=== PATIENT | male | born 1940 | race Caucasian/White ===

== ENCOUNTER 2022-12-20 11:43 | Inpatient (IN) | payer MEDICARE, BC, SELFPAY ==
[2022-12-20] VITALS (38 sets, daily range): BP systolic 117–135; BP diastolic 54–65; PULSE 61–75; RESP 12–24; TEMP 36.2–36.8; O2SAT 98–100; BMI 24.7; BMI 24.9
--- NOTE | ~2022-12-20 | XR_ITS ---
EXAMINATION: XR chest 1V INDICATION: Altered mental status TECHNIQUE: AP view of the chest is obtained. COMPARISON: 05/29/2017 FINDINGS: The lungs are free of acute opacities. No pleural effusion or pneumothorax. The cardiomedia stinal silhouette is normal. Calcified right paratracheal lymph nodes are consistent with old granulo matous disease. IMPRESSION: 1. No acute cardiopulmonary abnormality. Reviewed, dictated and finalized at location L.
--- NOTE | ~2022-12-20 | CT_ITS ---
EXAMINATION: CT brain wo con DATE: 12/20/2022 12:40 INDICATION: Altered mental status TECHNIQUE: Computed tomography (CT) of the head was performed without intravenous contrast. Sagittal and coronal reconstructions were performed. The mA was adjusted according to patient size. Iterative reconstruction technique was employed. The dose-length product was 681.00 mGy-cm. COMPARISON: head CT dated 05/29/17 FINDINGS: No acute intracranial hemorrhage, acute infarction or abnormal extra axial fluid collection. There is mild to moderate scattered white matter hypoattenuation consistent with chronic small vessel ischemi c disease. Symmetric prominence of the sulci and ventricles consistent with mild to moderate age-appr opriate diffuse cerebral volume loss. Ventricles are normal and symmetric. No mass/mass effect. Fleming es of left intraocular lens replacement. The orbits and mastoid air cells are normal. There is comple te opacification of the left frontal sinus. Intracranial calcified cerebral atherosclerosis is noted. IMPRESSION: 1. No acute intracranial process. 2. Age-related changes including mild to moderate diffuse volume loss and scattered white matter hypo attenuation consistent with chronic small vessel ischemic disease. 3. Complete opacification of the left maxillary sinus. Reviewed, dictated and finalized at location A. IMPRESSION: 1. No acute intracranial process. 2. Age-related changes including mild to moderate diffuse volume loss and scatt ered white matter hypoattenuation consistent with chronic small vessel ischemic disease. 3. Complete opacification of the left maxillary sinus.
--- NOTE | ~2022-12-20 | CT_ITS ---
EXAMINATION: CT abdomen pelvis w con INDICATION: Abdominal pain TECHNIQUE: Computed tomographic images of the abdomen and pelvis were obtained after the administrati on of 100 cc of Omnipaque 350 intravenous contrast. The dose-length product (DLP) was 772.65 mGy-cm. Automated exposure control and iterative reconstruction technique were employed. COMPARISON: None available FINDINGS: Minimal dependent atelectasis and bronchiectasis are present in the lung bases. The heart s ize is normal. Calcified pulmonary nodules and calcified left hilar and subcarinal lymph nodes are co nsistent with old granulomatous disease. Punctate calcifications in an otherwise normal spleen likely represent healed granulomatous disease. The gallbladder is surgically absent. There is a 10 mm cyst of the liver. The pancreas and adrenal glands are normal. Cysts of the kidneys measure up to 4.1 cm o n the left. There is a 1.1 cm hyperdense mass of the left kidney lower pole. There is a 5 mm nonobstr ucting stone of the right kidney lower pole. No pathologically enlarged abdominal or pelvic lymph nod es are identified. No free intraperitoneal gas or evidence of bowel obstruction. A moderate volume of colonic stool is present. Urinary bladder is mildly distended. There is a catheter in the bladder. T here is severe lumbar spondylosis. There are stabilization screws in the left femoral neck. IMPRESSION: 1. Mild distention of the urinary bladder. Catheter appears to be in place. 2. 1.1 cm hyperdense mass of the left kidney lower pole which could reflect hemorrhagic cyst or possi belle renal neoplasm. Follow-up with nonemergent CT or MRI without and with contrast is recommended. 3. Nonobstructing right kidney stone. Reviewed, dictated and finalized at location L. IMPRESSION: 1. Mild distention of the urinary bladder. Catheter appears to be in place. 2. 1.1 cm hyperdense mass of the left kidney lower pole which could reflect hem orrhagic cyst or possibly renal neoplasm. Follow-up with nonemergent CT or MRI without and with contrast is recommended. 3. Nonobstructing right kidney stone.
--- NOTE | ~2022-12-20 | US_ITS ---
EXAMINATION: US arterial ankle brachial ind DATE: 12/21/2022 13:10 INDICATION: Chronic left foot wound with diminished pulses TECHNIQUE: Segmental pressures and plethysmographic and Doppler waveforms of the brachial and lower e xtremity arteries were obtained. COMPARISON: None. FINDINGS: Right and left brachial artery pressures of 134 mm Hg and 135 mm Hg, respectively, are concordant (no rmal difference <= 30 mmHg). The right ankle-brachial index (MARÍA) was unable to be obtained due to inability to occlude the vessel s at the right ankle (normal >= 0.9-1.0). The right great toe-brachial index (TBI) is 0.61 (normal >= 0.65). Arterial Doppler waveforms are biphasic with brisk systolic upstrokes at both right posterior tibial and dorsalis pedis arteries. The left MARÍA is also unable to be obtained due to inability to occlude the vessels at the left ankle. The left TBI is 0.64. Arterial Doppler waveforms are biphasic with brisk systolic upstrokes at both left posterior tibial and dorsalis pedis arteries. IMPRESSION: 1. Mild arterial occlusive disease to bilateral lower limbs with mildly decreased bilateral TBI's. Reviewed, dictated and finalized at location A. IMPRESSION: 1. Mild arterial occlusive disease to bilateral lower limbs with mildly decreas ed bilateral TBI's.
--- NOTE | ~2022-12-20 | XR_ITS ---
EXAMINATION: XR foot LT min 3V DATE: 12/20/2022 13:07 INDICATION: Left heel wound. TECHNIQUE: 4 views of left foot were obtained. COMPARISON: None. FINDINGS: Bone alignment is normal. There is diffuse osteopenia. No fracture. There is severe osteoar thritis of first metatarsophalangeal joint and mild osteoarthritis of some of the interphalangeal vinnie nts. There are erosions of the inferior aspect of calcaneal tuberosity. IMPRESSION: 1. Erosions of the inferior aspect of calcaneal tuberosity, consistent with osteomyelitis. 2. Polyarticular osteoarthritis. Reviewed, dictated and finalized at location A. IMPRESSION: 1. Erosions of the inferior aspect of calcaneal tuberosity, consistent with ost eomyelitis. 2. Polyarticular osteoarthritis.
[2022-12-20 11:49] LABS: Glucose Point of Care 60 mg/dl (65-105)
--- NOTE | 2022-12-20 11:57 | ECG_ITS ---
Measurements Intervals [place] Rate: 69 P: 47 MO: 207 QRS: -44 QRSD: 96 T: 31 QT: 389 QTc: 419 Interpretive Statements SINUS RHYTHM MARKED LEFT AXIS DEVIATION [QRS AXIS < -30] MODERATE VOLTAGE CRITERIA FOR LVH, CONSIDER NORMAL VARIANT [MEETS CRITERIA IN ONE OF: R(aVL), S(V1), R(V5), R(V5/V6)+S(V1)] POSSIBLE ANTERIOR MYOCARDIAL INFARCTION , PROBABLY OLD [30 ms Q WAVE IN V3/V4, OR R < 0.2 mV IN V4] NO PREVIOUS ECG AVAILABLE FOR COMPARISON Electronically Signed On 12-20-2022 14:21:54 CDT by Tonja Vasquez M.D.
[2022-12-20] MEDS: LACTATED RINGERS 1,000 ML 999 ML IV CONT (12:28)
[2022-12-20] MEDS: DEXTROSE 50% 25 GM/50 ML SYRINGE IV PUSH (12:28)
[2022-12-20 12:38] LABS: Basophils Percent Auto 0.3 % (0.2-1.2); Eosinophils Absolute Auto 0.1 K/mm3 (0-0.3); Eosinophils Percent Auto 1.3 % (0-4.4); Hematocrit 31.9 % (42.0-52.0); Hemoglobin 10.1 g/dL (14.0-18.0); Immature Granulocyte Absolute 0.06 K/mm3 (0.00-0.031); Immature Granulocyte Percent A 0.6 % (0-0.5); Lymphocytes Absolute Auto 1.16 K/mm3 (0.9-3.2); Lymphocytes Percent Auto 12.2 % (18.3-44.2); Mean Corpuscular HGB Conc 31.7 g/dl (32-36); Mean Corpuscular Hemoglobin 29.3 pg (26-34); Mean Corpuscular Volume 92.5 fl (80-100); Mean Platelet Volume 9.7 fl (7.4-10.4); Monocytes Absolute Auto 0.8 K/mm3 (0.1-0.6); Monocytes Percent Auto 8.2 % (2.6-8.5); Neutrophils Absolute Auto 7.4 K/mm3 (1.3-6.7); Neutrophils Percent Auto 77.4 % (45.5-73.1); Platelet Count Result 384 k/mm3 (150-375); Red Blood Count 3.45 M/mm3 (4.6-6.20); Red Cell Distribution Width 18.7 % (11.5-14.5); White Blood Count 9.5 K/mm3 (4.5-10.0)
[2022-12-20 12:48] LABS: INR 1.3; Prothrombin Time 15.2 Seconds (11.1-14.7)
[2022-12-20 12:49] LABS: Partial Thromboplastin Time 38.5 SECONDS (22.3-36.8)
[2022-12-20 12:51] LABS: Alanine Aminotransferase 22 U/L (6-50); Albumin Level 3.9 g/dL (3.5-5.1); Alkaline Phosphatase 97 U/L (38-126); Anion Gap 6 mmol/L (8-16); Aspartate Amino Transferase 32 U/L (17-59); Bilirubin,Total 0.7 mg/dL (0.2-1.3); Blood Urea Nitrogen 31 mg/dL (9-20); CRP 8.2 mg/dL (<1.0); Calcium 10.1 mg/dL (8.4-10.2); Carbon Dioxide 32 mmol/L (22-30); Chloride 101 mmol/L (98-107); Estimated CRCL calculation 43 ml/min; Estimated Glomerular Filt Rate 58; Glucose 67 mg/dL (65-110); Sodium 139 mmol/L (137-145)
--- NOTE | 2022-12-20 12:52 | ED.AMS ---
HPI - Altered Mental Status General Chief Complaint: Altered Mental Status Stated Complaint: ams Time Seen by Provider: 12/20/22 12:10 History of Present Illness HPI narrative: This is an 82-year-old male with past medical history of diabetes, who presents from his skilled nursing for altered mental status. Patient's staff noted the patient was more lethargic than usual and had changes on a chronic left heel wound that appeared worse than usual. Staff also noted the patient's blood sugar was in the 60s. He was given juice with improvement to 73. The patient denies pain, though does feel generally more weak than normal. He has no other complaints today. Related Data Home Medications Medication Instructions Recorded Confirmed acidophilus 25 million 1 tablet PO DAILY 12/20/22 12/20/22 cell-pectin, citrus 100 mg tablet allopurinol 100 mg tablet 100 mg PO BID 12/20/22 12/20/22 amlodipine 10 mg tablet 10 mg PO DAILY 12/20/22 12/20/22 aspirin 81 mg tablet,delayed 81 mg PO DAILY 12/20/22 12/20/22 release atorvastatin 20 mg tablet 20 mg PO HS 12/20/22 12/20/22 buspirone 30 mg tablet 30 mg PO BID 12/20/22 12/20/22 cholecalciferol (vitamin D3) 25 25 mcg PO DAILY 12/20/22 12/20/22 mcg (1,000 unit) tablet (Vitamin D3) enoxaparin 40 mg/0.4 mL 40 mg subcut DAILY 12/20/22 12/20/22 subcutaneous syringe ferrous sulfate 325 mg (65 mg 325 mg PO DAILY 12/20/22 12/20/22 iron) tablet (FeroSul) glipizide 5 mg tablet 5 mg PO DAILY 12/20/22 12/20/22 lactulose 10 gram/15 mL oral 15 ml PO PRN PRN Constipation 12/20/22 12/20/22 solution magnesium oxide 400 mg (241.3 mg 400 mg PO DAILY 12/20/22 12/20/22 magnesium) tablet menthol 0.44 %-zinc oxide 20.6 % See Rx Instructions .Route .COMPLEX 12/20/22 12/20/22 topical ointment (Calmoseptine) metformin 500 mg tablet 500 mg PO BID 12/20/22 12/20/22 metoprolol tartrate 50 mg tablet 50 mg PO BID 12/20/22 12/20/22 morphine 15 mg tablet,extended 15 mg PO PRN PRN Pain 12/20/22 12/20/22 release morphine 30 mg tablet,extended 30 mg PO BID 12/20/22 12/20/22 release oxycodone 5 mg tablet 5 mg PO Q8H PRN Pain 12/20/22 12/20/22 sertraline 100 mg tablet 100 mg PO DAILY 12/20/22 12/20/22 Allergies Allergy/AdvReac Type Severity Reaction Status Date / Time No Known Allergies Allergy Unverified 05/29/17 19:29 Review of Systems Review of Systems: CONSTITUTIONAL: Denies fever, chills, or sweats. CARDIOVASCULAR: Denies chest pain, palpitations, or edema. RESPIRATORY: Denies cough or dyspnea. GASTROINTESTINAL: Denies abdominal pain, nausea, vomiting, or diarrhea. GENITOURINARY: Denies dysuria or hematuria. SKIN: Denies rash or itching. MUSCULOSKELETAL: Denies back pain, joint pain, or myalgia. NEUROLOGIC: Denies headache, numbness, dizziness, or weakness. PSYCHIATRIC: Denies anxiety or depression. [facility] Past Medical History Medical History (Updated 12/20/22 @ 20:35 by Alana Bearden PA-C) Chronic pain syndrome Gout Hyperlipidemia Hypertension Iron deficiency anemia Psoriasis Type 2 diabetes mellitus Surgical History Surgical History (Updated 12/20/22 @ 20:34 by Alana Bearden PA-C) History of cataract extraction with lens replacement History of cholecystectomy Family History Family History (Updated 12/20/22 @ 17:01 by Alana Bearden PA-C) Other Diabetes mellitus Hypertension Social History Social History (Updated 12/20/22 @ 17:02 by Alana Bearden PA-C) Social History: Healthcare power of prosecuting attorney: Farida Muller, daughter. Code status: Full code. Smoking status: Never smoker Second hand tobacco smoke exposure: No Alcohol intake: never Substance use: never Lack of Transportation: No Lack of Food: Never True Current Housing: I Have Housing Concerned About Future Housing: No Difficulty Paying Gas/Electric Bills: No Difficulty Paying for Meds: No Currently Unemployed: No Education: Master's Degree or Higher Difficult
[2022-12-20 13:00] LABS: Troponin I < 0.012 ng/mL (0.000-0.034)
[2022-12-20 13:21] LABS: Lactic Acid Reflex 1.9 mmol/L (0.7-2.0)
[2022-12-20 13:34] LABS: Glucose Point of Care 125 mg/dl (65-105)
--- NOTE | 2022-12-20 16:10 | PM.IMHP ---
H&P: HPI History of Present Illness Date/Time: 12/20/22 16:10 Chief Complaint: Lethargic. Narrative: This is a pleasant 82-year-old gentleman with hypertension, hyperlipidemia, type 2 diabetes mellitus, and chronic anemia who presented to the emergency department via EMS from [place] for evaluation of lethargy. Staff at his residential facility felt that the patient was bit more lethargic than usual and there were concerns that his chronic left heel wound was worse which prompted the call to 911. On EMS arrival his glucose was 66, he was given glucose, and on arrival to the ED his random glucose was 67. He has been afebrile with stable blood pressures. Pertinent labs in the ED include a WBC count of 9.5, hemoglobin 10.1, normal electrolytes, BUN 31, creatinine 1.20, lactic acid 1.9, CRP 8.2. Imaging of the left foot showed erosions of the inferior aspect of the calcaneal tuberosity consistent with osteomyelitis. He is being admitted in this setting for IV antibiotics and surgical consultation. At the time my evaluation he is resting comfortably. He does report feeling more tired than usual. He has had this heel wound for over a year and it sounds as though he has had debridement done on that in the past. He has no known history of osteomyelitis. He has not had fever, chills, or sweats. No known history of multidrug resistant organisms. He has some pain with palpation of the wound but nothing significant. He is nonweightbearing but can stand and pivot on his right leg to transfer. Review of Systems Review of Systems: Twelve systems were reviewed. He has a history of repeated sinus infections. He denies fever, chills, and sweats. No focal weakness or paresthesias. Denies syncope and near syncope. He denies chest pain shortness a breath. No nausea, vomiting, or diarrhea. He has not had symptoms of hypoglycemia despite sugars being in the 60s. Except as documented, all other systems were reviewed and are negative. [facility] Past Medical History Medical History (Updated 12/20/22 @ 20:35 by Alana Bearden PA-C) Chronic pain syndrome Gout Hyperlipidemia Hypertension Iron deficiency anemia Psoriasis Type 2 diabetes mellitus Surgical History Surgical History (Updated 12/20/22 @ 20:34 by Alana Bearden PA-C) History of cataract extraction with lens replacement History of cholecystectomy Family History Family History (Updated 12/20/22 @ 17:01 by Alana Bearden PA-C) Other Diabetes mellitus Hypertension Social History Social History (Updated 12/20/22 @ 17:02 by Alana Bearden PA-C) Social History: Healthcare power of commercial attorney: Farida Muller, daughter. Code status: Full code. Smoking status: Never smoker Second hand tobacco smoke exposure: No Alcohol intake: never Substance use: never Lack of Transportation: No Lack of Food: Never True Current Housing: I Have Housing Concerned About Future Housing: No Difficulty Paying Gas/Electric Bills: No Difficulty Paying for Meds: No Currently Unemployed: No Education: Master's Degree or Higher Difficulty w/ Childcare or Family Care: No Additional living arrangements comments: Lives at [facility]. He has 2 living children who live nearby. 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 Spiritual care concerns: No Meds Home Medications and Allergies Home Medications Medication Instructions Recorded Confirmed Type acidophilus 25 million 1 tablet PO DAILY 12/20/22 12/20/22 History cell-pectin, citrus 100 mg tablet allopurinol 100 mg tablet 100 mg PO BID 12/20/22 12/20/22 History amlodipine 10 mg tablet 10 mg PO DAILY 12/20/22 12/20/22 History aspirin 81 mg tablet,delayed 81 mg PO DAILY 12/20/22 12/20/22 History release atorvastatin 20 mg tablet 20 mg PO HS 12/20/22 12/20/22 History buspirone 30 mg tablet 30 mg PO BID 12/20/22 12/20/22 History chol
[2022-12-20] MEDS: CEFEPIME 2 GM/NS 50 ML 2 GM/50 ML BAG IVPB (16:33)
[2022-12-20] MEDS: metroNIDAZOLE 500 MG/ISO 100ML 500 MG/100 ML BAG 100 MG IVPB ×2 (16:34→23:56)
[2022-12-20 16:52] LABS: Appearance Urine Clear (Clear); Bacteria Urine None Seen /hpf; Bilirubin Urine Negative (Negative); Blood Urine Negative (Negative); Color Urine Yellow (Yellow); Glucose Urine UA Negative (Negative); Ketones Urine Negative (Negative); Leukocyte Esterase Ur Negative LEU/UL (Negative); Need Manual Microscopic Reviewed; Nitrate Urine Negative (Negative); Non Pathogenic Casts 0-2; Protein Urine 1+ mg/dL (Negative); RBC Urine 0-2 /hpf (0-2); Specific Grav Ur 1.015 (1.001-1.035); Squamous Epithelial Cell Urine None seen /hpf (Few); WBC Urine 0-5 /hpf
[2022-12-20 16:54] LABS: Add Urine Microscopic? YES
--- NOTE | 2022-12-20 17:48 | ADMGEN ---
This patient, Chris Dewey, was admitted to Medical Room 244-. Patient oriented to hospital policies and general routines including ID bracelet, bed and alarms, visiting hours, pain management, procedures, bathroom and other care routines, personal items, smoking policy, room service/diet, and visiting hours. Information on how to activate the Rapid Response Team has been discussed. Patient is encouraged to report perceived risks to care and to ask questions if they do not understand what they are told or what they should do.
[2022-12-20 18:10] LABS: Glucose Point of Care 82 mg/dl (65-105)
[2022-12-20 18:30] LABS: Hemoglobin A1C 5.9 % (<5.7)
--- NOTE | 2022-12-20 19:34 | PC.NURSE ---
On 12/20/22, the license pending RN, Denae Christian, provided care and completed [facility] documentation on this patient. I have reviewed the license pending RN's documentation and agree with the findings.
[2022-12-20 20:49] LABS: Glucose Point of Care 117 mg/dl (65-105)
[2022-12-20] MEDS: ONDANSETRON INJ 4 MG/2 ML VIAL IV PUSH (21:22)
[2022-12-20] MEDS: ACETAMINOPHEN 325 MG TABLET 650 MG PO (21:22)
[2022-12-20] MEDS: busPIRone HCL 10 MG TABLET 30 MG PO (21:22)
[2022-12-20] MEDS: allopurinoL 100 MG TABLET PO (21:23)
[2022-12-20] MEDS: ATORVASTATIN 20 MG TABLET PO (21:23)
[2022-12-20] MEDS: METOPROLOL TARTRATE 50 MG TAB PO (21:23)
[2022-12-20] MEDS: SODIUM CHLORIDE 0.9% IV 1,000 ML 100 ML IV CONT (21:23)
[2022-12-21] VITALS (7 sets, daily range): BP systolic 144–148; BP diastolic 62–65; PULSE 70–78; RESP 12–16; TEMP 36.4–36.9; O2SAT 97–99; BMI 25.0
[2022-12-21] MEDS: ONDANSETRON INJ 4 MG/2 ML VIAL IV PUSH (02:16)
[2022-12-21] MEDS: oxyCODONE HCL (*CRX) 5 MG TAB IR PO (03:27)
[2022-12-21] MEDS: CEFEPIME 2 GM/NS 50 ML 2 GM/50 ML BAG IVPB ×2 (04:34→17:54)
[2022-12-21 06:02] LABS: Basophils Percent Auto 0.3 % (0.2-1.2); Hematocrit 28.8 % (42.0-52.0); Hemoglobin 9.4 g/dL (14.0-18.0); Immature Granulocyte Absolute 0.05 K/mm3 (0.00-0.031); Immature Granulocyte Percent A 0.5 % (0-0.5); Lymphocytes Absolute Auto 0.72 K/mm3 (0.9-3.2); Lymphocytes Percent Auto 7.5 % (18.3-44.2); Mean Corpuscular HGB Conc 32.6 g/dl (32-36); Mean Corpuscular Volume 88.9 fl (80-100); Mean Platelet Volume 10.7 fl (7.4-10.4); Monocytes Absolute Auto 0.5 K/mm3 (0.1-0.6); Monocytes Percent Auto 5.3 % (2.6-8.5); Neutrophils Absolute Auto 8.3 K/mm3 (1.3-6.7); Neutrophils Percent Auto 86.4 % (45.5-73.1); Platelet Count Result 385 k/mm3 (150-375); Red Blood Count 3.24 M/mm3 (4.6-6.20); Red Cell Distribution Width 18.1 % (11.5-14.5); White Blood Count 9.6 K/mm3 (4.5-10.0)
[2022-12-21 06:07] LABS: Anion Gap 13 mmol/L (8-16); Blood Urea Nitrogen 24 mg/dL (9-20); Calcium 9.2 mg/dL (8.4-10.2); Carbon Dioxide 26 mmol/L (22-30); Chloride 100 mmol/L (98-107); Estimated CRCL calculation 50 ml/min; Estimated Glomerular Filt Rate > 60; Glucose 161 mg/dL (65-110); Magnesium 1.5 mg/dL (1.6-2.3); Potassium 3.3 mmol/L (3.4-5.0); Sodium 139 mmol/L (137-145)
[2022-12-21 08:27] LABS: Glucose Point of Care 153 mg/dl (65-105)
[2022-12-21] MEDS: POTASSIUM CHLORIDE 20 MEQ PACKET (FOR LIQUID) 40 MEQ PO (08:47)
[2022-12-21] MEDS: ACIDOPHILUS/BULGARICUS CHEWABLE TABLET 1 TABLET PO (08:47)
[2022-12-21] MEDS: ASPIRIN 81 MG ENTERIC TABLET PO (08:48)
[2022-12-21] MEDS: allopurinoL 100 MG TABLET PO ×2 (08:48→17:57)
[2022-12-21] MEDS: amLODIPine BESYLATE 5 MG TABLET 10 MG PO (08:48)
[2022-12-21] MEDS: busPIRone HCL 10 MG TABLET 30 MG PO ×2 (08:48→17:58)
[2022-12-21] MEDS: CHOLECALCIFEROL 1,000 UNITS TABLET 1000 UNITS PO (08:49)
[2022-12-21] MEDS: ENOXAPARIN 40 MG/0.4 ML SYRINGE SUB-Q (08:49)
[2022-12-21] MEDS: FERROUS SULFATE 324 MG TABLET PO (08:49)
[2022-12-21] MEDS: SERTRALINE HCL 50 MG TABLET 100 MG PO (08:50)
[2022-12-21] MEDS: METOPROLOL TARTRATE 50 MG TAB PO ×2 (08:50→17:59)
[2022-12-21] MEDS: MAGNESIUM OXIDE 400 MG TABLET PO (08:50)
[2022-12-21] MEDS: metroNIDAZOLE 500 MG/ISO 100ML 500 MG/100 ML BAG 100 MG IVPB ×2 (08:55→16:31)
--- NOTE | 2022-12-21 11:25 | PM.CNGS ---
Assessment and Plan Assessment and plan (1) Chronic ulcer of left heel: Code(s): L97.429 - Non-pressure chronic ulcer of left heel and midfoot with unspecified severity Status: Chronic Assessment and Plan: The patient has a chronic ulcer on the plantar aspect of his left heel. This appears stable at this time with no overt acute infection. There is no purulent drainage, fluctuance, or necrotic tissue that would require urgent surgical intervention or debridement. Would recommend to continue local wound care with silver gel dressing changes. Will order waffle boots for pressure reduction and elevate heels. ABIs ordered as well given this nonhealing chronic wound with diminished pulses. (2) Osteomyelitis of left foot: Code(s): M86.9 - Osteomyelitis, unspecified Status: Chronic Assessment and Plan: XR suggests osteomyelitis of the inferior aspect of calcaneal tuberosity. Continue broad-spectrum IV antibiotics for now. See plan above. (3) Type 2 diabetes mellitus: Code(s): E11.9 - Type 2 diabetes mellitus without complications Status: Acute Assessment and Plan: Controlled with a hgb A1C 5.9 on admission. Management per Hospitalist. (4) Chronic pain syndrome: Code(s): G89.4 - Chronic pain syndrome Status: Acute Assessment and Plan: Not complaining of any pain at this time. (5) Left kidney mass: Code(s): N28.89 - Other specified disorders of kidney and ureter Status: Acute Assessment and Plan: Incidentally noted on CT of the abdomen/pelvis which was apparently done due to abdominal pain, which he denies to me at this time. Recommend f/u nonemergent CT or MRI as an outpatient. (6) Hypertension: Code(s): I10 - Essential (primary) hypertension Status: Acute Plan I have discussed the patient's case and plan of care with Dr. Ortiz. History of Present Illness Consult details Consult date: 12/21/22 Reason for consult: other (Osteomyelitis) Requesting physician: Ron Wilson MD Narrative: This is an 82-year-old man with a history of type 2 diabetes, hypertension, and hyperlipidemia who was brought into the ER from [facility] yesterday for evaluation of lethargy and concerns of a chronic left heel wound. Staff called EMS and his glucose was in the 60s on arrival. He was brought into the ER. Labs showed a white blood cell count of 9500, lactic acid 1.9, CRP 8.2, BUN 31, and creatinine 1.2. X-rays of the left foot showed erosions of the inferior aspect of the calcaneal tuberosity consistent with osteomyelitis. He was admitted to the hospitalist service. Wound care was consulted. Our service was also consulted for the osteomyelitis. He has been started on IV cefepime, metronidazole, and vancomycin. He is now seen on the medical floor. He is oriented x4, but somewhat of a poor historian in regards to details of his wound. He does report having this wound for about a year. He cannot recall having any previous debridements or surgeries on the wound. He believes he had previous care for this wound at [facility] in [place] and [facility] in [place]. He denies any pain in his left foot or any other location. No known recent fevers. No other complaints at this time. He does report being able to get up and pivot [facility], but states he no longer ambulates. He spends most of his day in the bed and chair. Review of Systems Review of Systems: All systems reviewed & are unremarkable except as noted in HPI and below Constitutional: Constitutional: Reports no additional constitutional complaints, Denies chills, Denies fatigue, Denies fever(s) and Denies poor appetite Eyes: Eyes: Reports no additional eye complaints ENT: Reports system reviewed and no additional complaints, except as documented and Denies dizziness Cardiovascular: Cardiovascular: Reports no additional cardio
--- NOTE | 2022-12-21 11:33 | PM.IMPN ---
Progress Note: A&P Assessment and Plan (1) Acute osteomyelitis of left calcaneus: Code(s): M86.172 - Other acute osteomyelitis, left ankle and foot Status: Acute Assessment and Plan: Continue IV antibiotics. Surgical consult (2) Hypoglycemia: Code(s): E16.2 - Hypoglycemia, unspecified Status: Acute Assessment and Plan: Monitor (3) Lethargy: Code(s): R53.83 - Other fatigue Status: Acute Assessment and Plan: Improved (4) Hypertension: Code(s): I10 - Essential (primary) hypertension Status: Acute Assessment and Plan: Continue home medications. (5) Type 2 diabetes mellitus: Code(s): E11.9 - Type 2 diabetes mellitus without complications Status: Acute Assessment and Plan: Sliding scale insulin and monitor blood sugar. (6) Left kidney mass: Code(s): N28.89 - Other specified disorders of kidney and ureter Status: Acute Assessment and Plan: Will need outpatient CT or MRI. Subjective Date/time seen: 12/21/22 11:33 No new complaints Exam Narrative: General: Mildly ill-appearing gentleman supine in bed. Weight: 75.5 kg. BMI: 24.6. HEENT: PERRL, EOMI. Sclera anicteric. Conjunctiva mildly injected. Changes of prior cataract surgery with lens implants. Tacky mucous membranes. Neck: Supple. No JVD or lymphadenopathy. Respiratory: Lungs are clear to auscultation bilaterally. Cardiovascular: Regular rate and rhythm with S1-S2. Gastrointestinal: Abdomen is soft, nontender, and nondistended with positive bowel sounds. Skin: Warm and dry. There is a wound on the left heel with a small amount of clear mucus-like drainage without purulence. There is no bleeding noted. Perhaps small amount of surrounding erythema but no induration. He is tender to palpation throughout the area. Wound was not probed. No subcutaneous emphysema noted. Extremities: No cyanosis or clubbing. He has some edema of both lower legs which appear symmetric. Peripheral pulses palpable. Neurological: Alert and oriented x4. Cranial nerves 2-12 are grossly intact. No gross focal deficits to casual conversation. Speech is clear. No facial asymmetry. Hand report manager are strong and equal bilaterally in upper extremities. Hip flexors 4/5. Psychiatric: Pleasant and cooperative with normal mood and affect. Objective Data Vital Signs Vital Signs: Vital Signs - 24 hr 12/20/22 11:47 12/20/22 16:30 12/20/22 11:48 Temperature 97.1 F L Pulse Rate 73 63 66 Respiratory Rate 16 18 Blood Pressure 127/58 L 131/62 Pulse Oximetry 98 100 Oxygen Delivery Room Air 12/20/22 11:47 12/20/22 12:00 12/20/22 12:01 Temperature Pulse Rate 71 69 68 Respiratory Rate 14 16 16 Blood Pressure 121/64 Pulse Oximetry 100 99 100 Oxygen Delivery 12/20/22 12:15 12/20/22 12:30 12/20/22 12:49 Temperature Pulse Rate 72 72 69 Respiratory Rate 13 24 H 17 Blood Pressure Pulse Oximetry 100 100 100 Oxygen Delivery 12/20/22 13:00 12/20/22 13:01 12/20/22 13:15 Temperature Pulse Rate 69 68 67 Respiratory Rate 15 17 17 Blood Pressure 120/55 L Pulse Oximetry 100 99 Oxygen Delivery 12/20/22 13:16 12/20/22 13:50 12/20/22 14:00 Temperature Pulse Rate 65 66 64 Respiratory Rate 14 15 12 Blood Pressure 117/56 L Pulse Oximetry 99 Oxygen Delivery 12/20/22 14:01 12/20/22 14:15 12/20/22 14:16 Temperature Pulse Rate 66 71 64 Respiratory Rate 15 15 16 Blood Pressure 121/60 119/60 Pulse Oximetry 98 99 Oxygen Delivery 12/20/22 14:31 12/20/22 14:39 12/20/22 14:59 Temperature Pulse Rate 62 62 61 Respiratory Rate 16 18 17 Blood Pressure 121/60 Pulse Oximetry 99 Oxygen Delivery 12/20/22 15:00 12/20/22 15:01 12/20/22 15:21 Temperature Pulse Rate 61 61 68 Respiratory Rate 12 13 18 Blood Pressure 126/56 L Pulse Oximetry 98 100 Oxygen Delivery 12/20/22 15:22 12/20/22 15:30
[2022-12-21 12:30] LABS: Glucose Point of Care 149 mg/dl (65-105)
[2022-12-21] MEDS: SILVERGEL (ELTA) 45 ML 1 APPLIC TOPICAL (13:47)
[2022-12-21 16:44] LABS: Glucose Point of Care 153 mg/dl (65-105)
[2022-12-21] MEDS: ATORVASTATIN 20 MG TABLET PO (21:30)
[2022-12-21 22:54] LABS: Glucose Point of Care 133 mg/dl (65-105)
[2022-12-22] MEDS: metroNIDAZOLE 500 MG/ISO 100ML 500 MG/100 ML BAG 100 MG IVPB ×4 (01:05→23:07)
[2022-12-22] MEDS: LACTULOSE 20 GM/30 ML UDC 15 GM PO (01:49)
[2022-12-22] MEDS: CEFEPIME 2 GM/NS 50 ML 2 GM/50 ML BAG IVPB ×2 (05:02→16:52)
[2022-12-22 05:49] VITALS: BP 141/58; PULSE 72; RESP 16; TEMP 36.7; O2SAT 99
[2022-12-22 07:43] LABS: Glucose Point of Care 120 mg/dl (65-105)
[2022-12-22] MEDS: SERTRALINE HCL 50 MG TABLET 100 MG PO (08:19)
[2022-12-22] MEDS: amLODIPine BESYLATE 5 MG TABLET 10 MG PO (08:19)
[2022-12-22] MEDS: allopurinoL 100 MG TABLET PO ×2 (08:19→16:50)
[2022-12-22] MEDS: ACIDOPHILUS/BULGARICUS CHEWABLE TABLET 1 TABLET PO (08:19)
[2022-12-22] MEDS: FERROUS SULFATE 324 MG TABLET PO (08:19)
[2022-12-22] MEDS: busPIRone HCL 10 MG TABLET 30 MG PO ×2 (08:19→16:51)
[2022-12-22] MEDS: ASPIRIN 81 MG ENTERIC TABLET PO (08:19)
[2022-12-22] MEDS: CHOLECALCIFEROL 1,000 UNITS TABLET 1000 UNITS PO (08:20)
[2022-12-22] MEDS: ENOXAPARIN 40 MG/0.4 ML SYRINGE SUB-Q (08:20)
[2022-12-22] MEDS: METOPROLOL TARTRATE 50 MG TAB PO ×2 (08:20→16:51)
[2022-12-22] MEDS: MAGNESIUM OXIDE 400 MG TABLET PO (08:20)
[2022-12-22] MEDS: SILVERGEL (ELTA) 45 ML 1 APPLIC TOPICAL (08:20)
--- NOTE | 2022-12-22 11:03 | P.OP_ITS ---
Procedure Note - Detailed Date of Procedure 12/22/22 Pre-op Diagnosis Heel ulcer with skin and subcu necrosis Post-op Diagnosis Same Procedure Performed Excisional debridement skin and subcutaneous 2.5 x 1.6 cm left heel ulcer Surgeon Dejan Ortiz MD Anesthesia None Indications Patient has a calcaneal ulcer on the plantar surface of his heel. There was some skin and subcutaneous that has formed a flap-like covering over most of the ulcer. It is making it difficult to apply the silver gel dressing a ppropriately. It is being debrided at the bedside. Findings Some granulation tissue over the exposed calcaneus. No purulent fluid noted. Description of Procedure Patient's heel ulcer was exposed. Using sharp dissection, the area of necrotic skin and subcutaneous was elevated and excised. The area was insensate and the patient did not have any discomfort associated with this. There was no bleeding either. Estimated Blood Loss 0 Urine Output 1,125 Pathology None sent Complications No immediate complications Condition Stable Disposition No change [facility] Billing Surgery - Charge Forward: Surgery Billing (Excisional debridement left heel 2.5 x 1.6 cm skin and subcutaneous.)
--- NOTE | 2022-12-22 11:07 | PM.PNGS ---
Progress Note: A&P Assessment and Plan (1) Chronic ulcer of left heel: Code(s): L97.429 - Non-pressure chronic ulcer of left heel and midfoot with unspecified severity Status: Chronic Assessment and Plan: Heel ulcer looks good. See procedure note. I debrided some skin and subcutaneous that was covering most of the ulcer. The underlying calcaneus is granulating and should fill in. Continue silver gel dressing changes. I will order some while full boots to avoid additional pressure phenomenon. Patient can probably be discharged in a couple of days on oral antibiotics and wound care with waffle boots. (2) Acute osteomyelitis of left calcaneus: Code(s): M86.172 - Other acute osteomyelitis, left ankle and foot Status: Acute Assessment and Plan: Do not feel extended IV antibiotics will be necessary to facilitate healing. Please see above. Subjective Subjective Date/Time Seen: 12/22/22 11:07 Patient reports: no new complaints, pain is less (No pain associated with heel ulcer) and afebrile Review of Systems Review of Systems: ROS unobtainable: Yes unobtainable due to medical condition (Dementia) Exam Const: General: cooperative, comfortable and no acute distress Extrem: Left lower extremity: foot (Calcaneal ulcer with necrotic skin and subcut flap over most of the ulcer) Details: other (See procedure note, granulation tissue covering calcaneus that is exposed.) Psych: Affect: Indifferent affect present Attitude: cooperative Insight: Limited insight present (Psych) Judgement: Limited judgement present (Psych) Objective Data Vital Signs Vital Signs: Vital Signs - 24 hr 12/21/22 14:00 12/21/22 17:59 12/21/22 20:48 Temperature 36.7 C 36.9 C Pulse Rate 74 70 71 Respiratory Rate 12 16 Blood Pressure 144/62 H 145/65 H Pulse Oximetry 99 99 Oxygen Delivery 12/21/22 20:00 12/22/22 05:49 Temperature 36.7 C Pulse Rate 71 72 Respiratory Rate 16 16 Blood Pressure 141/58 H Pulse Oximetry 99 99 Oxygen Delivery Room Air Intake/Output Intake/Output: Intake & Output 12/19/22 12/20/22 12/21/22 12/22/22 23:59 23:59 23:59 23:59 Intake Total 1540 930 400 Output Total 400 2125 1125 Balance 1140 1195 -725 Meds/Results Medications: Active Medications Generic Name Dose Route Start Last Admin Trade Name Freq PRN Reason Stop Dose Admin Acetaminophen 650 mg 12/20/22 17:16 12/20/22 21:22 Acetaminophen 325 Mg Tablet PO 650 mg Q6H PRN Administration Mild Pain (1-3) or Fever Acetaminophen 650 mg 12/20/22 20:42 Acetaminophen 325 Mg Tablet PO Q6H PRN Mild Pain (1-3) or Fever Hydrocodone Bitart/Acetaminophen 1 tab 12/20/22 20:42 Hydrocodone/Acetaminophen (*Crx) 5-325 Mg Tablet PO Q6H PRN Pain Rated 4-6 Allopurinol 100 mg 12/20/22 20:50 12/22/22 08:19 Allopurinol 100 Mg Tablet PO 100 mg BID RADHA Administration Amlodipine Besylate 10 mg 12/21/22 09:00 12/22/22 08:19 Amlodipine Besylate 5 Mg Tablet PO 10 mg DAILY RADHA Administration Aspirin 81 mg 12/21/22 09:00 12/22/22 08:19 Aspirin 81 Mg Enteric Tablet PO 81 mg DAILY RADHA Administration Atorvastatin Calcium 20 mg 12/20/22 21:00 12/21/22 21:30 Atorvastatin 20 Mg Tablet PO 20 mg HS RADHA Administration Buspirone HCl 30 mg 12/20/22 20:50 12/22/22 08:19 Buspirone Hcl 10 Mg Tablet PO 30 mg BID RADHA Administration Dextrose 12.5 gm 12/20/22 17:16 Dextrose 50% 25 Gm/50 Ml Syringe IV PUSH PRN PRN Hypoglycemia Protocol Enoxaparin Sodium 40 mg 12/21/22 09:00 12/22/22 08:20 Enoxaparin 40 Mg/0.4 Ml Syringe SUB-Q 40 mg DAILY RADHA Administration Ferrous Sulfate 324 mg 12/21/22 09:00 12/22/22 08:19 Ferrous Sulfate 324 Mg Tablet PO 324 mg DAILY RADHA Administration Glucagon 1 mg 12/20/22 17:16 Glucagon For Inj 1 Mg Vial IM PRN PRN Hypoglycemia Protocol Glucose 15 g
--- NOTE | 2022-12-22 11:55 | PM.IMPN ---
Progress Note: A&P Assessment and Plan (1) Acute osteomyelitis of left calcaneus: Code(s): M86.172 - Other acute osteomyelitis, left ankle and foot Status: Acute Assessment and Plan: Continue IV antibiotics. Appreciate surgical consult Will continue IV antibiotics over the weekend and discuss with pharmacy I would eat on Saturday. Likely will need treatment for chronic osteomyelitis with oral antibiotics on discharge. (2) Hypoglycemia: Code(s): E16.2 - Hypoglycemia, unspecified Status: Acute Assessment and Plan: Monitor (3) Lethargy: Code(s): R53.83 - Other fatigue Status: Acute Assessment and Plan: Improved (4) Hypertension: Code(s): I10 - Essential (primary) hypertension Status: Acute Assessment and Plan: Continue home medications. (5) Type 2 diabetes mellitus: Code(s): E11.9 - Type 2 diabetes mellitus without complications Status: Acute Assessment and Plan: Sliding scale insulin and monitor blood sugar. (6) Left kidney mass: Code(s): N28.89 - Other specified disorders of kidney and ureter Status: Acute Assessment and Plan: Will need outpatient CT or MRI. Subjective Date/time seen: 12/22/22 11:55 No complaints Exam Narrative: General: Mildly ill-appearing gentleman supine in bed. Weight: 75.5 kg. BMI: 24.6. HEENT: PERRL, EOMI. Sclera anicteric. Conjunctiva mildly injected. Changes of prior cataract surgery with lens implants. Tacky mucous membranes. Neck: Supple. No JVD or lymphadenopathy. Respiratory: Lungs are clear to auscultation bilaterally. Cardiovascular: Regular rate and rhythm with S1-S2. Gastrointestinal: Abdomen is soft, nontender, and nondistended with positive bowel sounds. Skin: Warm and dry. There is a wound on the left heel with a small amount of clear mucus-like drainage without purulence. There is no bleeding noted. Perhaps small amount of surrounding erythema but no induration. He is tender to palpation throughout the area. Wound was not probed. No subcutaneous emphysema noted. Extremities: No cyanosis or clubbing. He has some edema of both lower legs which appear symmetric. Peripheral pulses palpable. Neurological: Alert and oriented x4. Cranial nerves 2-12 are grossly intact. No gross focal deficits to casual conversation. Speech is clear. No facial asymmetry. Hand director of social media marketing are strong and equal bilaterally in upper extremities. Hip flexors 4/5. Psychiatric: Pleasant and cooperative with normal mood and affect. Objective Data Vital Signs Vital Signs: Vital Signs - 24 hr 12/21/22 14:00 12/21/22 17:59 12/21/22 20:48 Temperature 98.1 F 98.4 F Pulse Rate 74 70 71 Respiratory Rate 12 16 Blood Pressure 144/62 H 145/65 H Pulse Oximetry 99 99 Oxygen Delivery 12/21/22 20:00 12/22/22 05:49 Temperature 98.1 F Pulse Rate 71 72 Respiratory Rate 16 16 Blood Pressure 141/58 H Pulse Oximetry 99 99 Oxygen Delivery Room Air Intake/Output Intake/Output: Intake & Output 12/19/22 12/20/22 12/21/22 12/22/22 23:59 23:59 23:59 23:59 Intake Total 1540 930 500 Output Total 400 2125 1125 Balance 5490 -7953 -170 Meds/Results Medications: Active Medications Generic Name Dose Route Start Last Admin Trade Name Freq PRN Reason Stop Dose Admin Acetaminophen 650 mg 12/20/22 17:16 12/20/22 21:22 Acetaminophen 325 Mg Tablet PO 650 mg Q6H PRN Administration Mild Pain (1-3) or Fever Acetaminophen 650 mg 12/20/22 20:42 Acetaminophen 325 Mg Tablet PO Q6H PRN Mild Pain (1-3) or Fever Hydrocodone Bitart/Acetaminophen 1 tab 12/20/22 20:42 Hydrocodone/Acetaminophen (*Crx) 5-325 Mg Tablet PO Q6H PRN Pain Rated 4-6 Allopurinol 100 mg 12/20/22 20:50 12/22/22 08:19 Allopurinol 100 Mg Tablet PO 100 mg BID RADHA Administration Amlodipine Besylate 10 mg 12/21/22 09:00 12/22/22 08:19 Amlodipine Besylate 5
[2022-12-22 12:02] LABS: Glucose Point of Care 133 mg/dl (65-105)
[2022-12-22 14:00] VITALS: BP 133/77; PULSE 64; RESP 14; TEMP 36.4; O2SAT 98
[2022-12-22 17:06] LABS: Glucose Point of Care 148 mg/dl (65-105)
[2022-12-22 19:17] VITALS: BP 134/67; PULSE 77; RESP 18; TEMP 36.4; O2SAT 93
[2022-12-22] MEDS: ATORVASTATIN 20 MG TABLET PO (20:26)
[2022-12-22 20:31] LABS: Glucose Point of Care 153 mg/dl (65-105)
[2022-12-23 03:28] VITALS: BP 131/64; PULSE 68; RESP 18; TEMP 37; O2SAT 97
[2022-12-23] MEDS: CEFEPIME 2 GM/NS 50 ML 2 GM/50 ML BAG IVPB ×2 (05:24→17:31)
[2022-12-23 06:45] LABS: Basophils Percent Auto 0.2 % (0.2-1.2); Eosinophils Absolute Auto 0.1 K/mm3 (0-0.3); Eosinophils Percent Auto 0.5 % (0-4.4); Hematocrit 29.1 % (42.0-52.0); Hemoglobin 9.5 g/dL (14.0-18.0); Immature Granulocyte Percent A 0.6 % (0-0.5); Lymphocytes Absolute Auto 1.43 K/mm3 (0.9-3.2); Lymphocytes Percent Auto 8.7 % (18.3-44.2); Mean Corpuscular HGB Conc 32.6 g/dl (32-36); Mean Corpuscular Hemoglobin 28.8 pg (26-34); Mean Corpuscular Volume 88.2 fl (80-100); Mean Platelet Volume 10.4 fl (7.4-10.4); Monocytes Absolute Auto 0.9 K/mm3 (0.1-0.6); Monocytes Percent Auto 5.6 % (2.6-8.5); Neutrophils Absolute Auto 13.9 K/mm3 (1.3-6.7); Neutrophils Percent Auto 84.4 % (45.5-73.1); Platelet Count Result 382 k/mm3 (150-375); Red Cell Distribution Width 18.6 % (11.5-14.5); White Blood Count 16.5 K/mm3 (4.5-10.0)
[2022-12-23 06:54] LABS: Anion Gap 6 mmol/L (8-16); Blood Urea Nitrogen 26 mg/dL (9-20); Calcium 9.1 mg/dL (8.4-10.2); Carbon Dioxide 28 mmol/L (22-30); Chloride 101 mmol/L (98-107); Estimated CRCL calculation 50 ml/min; Estimated Glomerular Filt Rate > 60; Glucose 117 mg/dL (65-110); Potassium 3.2 mmol/L (3.4-5.0); Sodium 135 mmol/L (137-145)
[2022-12-23 08:08] LABS: Glucose Point of Care 135 mg/dl (65-105)
[2022-12-23 09:01] VITALS: PULSE 74
[2022-12-23] MEDS: METOPROLOL TARTRATE 50 MG TAB PO ×2 (09:01→17:32)
[2022-12-23] MEDS: amLODIPine BESYLATE 5 MG TABLET 10 MG PO (09:01)
[2022-12-23] MEDS: ACIDOPHILUS/BULGARICUS CHEWABLE TABLET 1 TABLET PO (09:01)
[2022-12-23] MEDS: CHOLECALCIFEROL 1,000 UNITS TABLET 1000 UNITS PO (09:01)
[2022-12-23] MEDS: MAGNESIUM OXIDE 400 MG TABLET PO (09:01)
[2022-12-23] MEDS: FERROUS SULFATE 324 MG TABLET PO (09:01)
[2022-12-23] MEDS: busPIRone HCL 10 MG TABLET 30 MG PO ×2 (09:01→17:31)
[2022-12-23] MEDS: allopurinoL 100 MG TABLET PO ×2 (09:01→17:32)
[2022-12-23] MEDS: SILVERGEL (ELTA) 45 ML 1 APPLIC TOPICAL (09:02)
[2022-12-23] MEDS: ENOXAPARIN 40 MG/0.4 ML SYRINGE SUB-Q (09:02)
[2022-12-23] MEDS: SERTRALINE HCL 50 MG TABLET 100 MG PO (09:02)
[2022-12-23] MEDS: ASPIRIN 81 MG ENTERIC TABLET PO (09:02)
[2022-12-23] MEDS: metroNIDAZOLE 500 MG/ISO 100ML 500 MG/100 ML BAG 100 MG IVPB ×2 (09:06→16:03)
--- NOTE | 2022-12-23 11:23 | PM.IMPN ---
Progress Note: A&P Assessment and Plan (1) Acute osteomyelitis of left calcaneus: Code(s): M86.172 - Other acute osteomyelitis, left ankle and foot Status: Acute Assessment and Plan: Continue IV antibiotics. Appreciate surgical consult Will continue IV antibiotics over the weekend and discuss with pharmacy I would eat on Saturday. Likely will need treatment for chronic osteomyelitis with oral antibiotics on discharge. (2) Hypoglycemia: Code(s): E16.2 - Hypoglycemia, unspecified Status: Acute Assessment and Plan: Monitor (3) Lethargy: Code(s): R53.83 - Other fatigue Status: Acute Assessment and Plan: Improved (4) Hypertension: Code(s): I10 - Essential (primary) hypertension Status: Acute Assessment and Plan: Continue home medications. (5) Type 2 diabetes mellitus: Code(s): E11.9 - Type 2 diabetes mellitus without complications Status: Acute Assessment and Plan: Sliding scale insulin and monitor blood sugar. (6) Left kidney mass: Code(s): N28.89 - Other specified disorders of kidney and ureter Status: Acute Assessment and Plan: Will need outpatient CT or MRI. Subjective Date/time seen: 12/23/22 11:23 No complaints Exam Narrative: General: Mildly ill-appearing gentleman supine in bed. Weight: 75.5 kg. BMI: 24.6. HEENT: PERRL, EOMI. Sclera anicteric. Conjunctiva mildly injected. Changes of prior cataract surgery with lens implants. Tacky mucous membranes. Neck: Supple. No JVD or lymphadenopathy. Respiratory: Lungs are clear to auscultation bilaterally. Cardiovascular: Regular rate and rhythm with S1-S2. Gastrointestinal: Abdomen is soft, nontender, and nondistended with positive bowel sounds. Skin: Warm and dry. There is a wound on the left heel with a small amount of clear mucus-like drainage without purulence. There is no bleeding noted. Perhaps small amount of surrounding erythema but no induration. He is tender to palpation throughout the area. Wound was not probed. No subcutaneous emphysema noted. Extremities: No cyanosis or clubbing. He has some edema of both lower legs which appear symmetric. Peripheral pulses palpable. Neurological: Alert and oriented x4. Cranial nerves 2-12 are grossly intact. No gross focal deficits to casual conversation. Speech is clear. No facial asymmetry. Hand manager hematology are strong and equal bilaterally in upper extremities. Hip flexors 4/5. Psychiatric: Pleasant and cooperative with normal mood and affect. Objective Data Vital Signs Vital Signs: Vital Signs - 24 hr 12/22/22 14:00 12/22/22 19:17 12/23/22 03:28 Temperature 97.5 F L 97.6 F 98.6 F Pulse Rate 64 77 68 Respiratory Rate 14 18 18 Blood Pressure 133/77 134/67 131/64 Pulse Oximetry 98 93 97 12/23/22 09:01 Temperature Pulse Rate 74 Respiratory Rate Blood Pressure Pulse Oximetry Intake/Output Intake/Output: Intake & Output 12/20/22 12/21/22 12/22/22 12/23/22 23:59 23:59 23:59 23:59 Intake Total 0293 708 9579 690 Output Total 400 2125 1125 Balance 1140 -1195 735 690 Meds/Results Medications: Active Medications Generic Name Dose Route Start Last Admin Trade Name Freq PRN Reason Stop Dose Admin Acetaminophen 650 mg 12/20/22 17:16 12/20/22 21:22 Acetaminophen 325 Mg Tablet PO 650 mg Q6H PRN Administration Mild Pain (1-3) or Fever Acetaminophen 650 mg 12/20/22 20:42 Acetaminophen 325 Mg Tablet PO Q6H PRN Mild Pain (1-3) or Fever Hydrocodone Bitart/Acetaminophen 1 tab 12/20/22 20:42 Hydrocodone/Acetaminophen (*Crx) 5-325 Mg Tablet PO Q6H PRN Pain Rated 4-6 Allopurinol 100 mg 12/20/22 20:50 12/23/22 09:01 Allopurinol 100 Mg Tablet PO 100 mg BID RADHA Administration Amlodipine Besylate 10 mg 12/21/22 09:00 12/23/22 09:01 Amlodipine Besylate 5 Mg Tablet PO 10 mg DAILY RADHA Administration Aspirin 81 mg
[2022-12-23 11:56] LABS: Glucose Point of Care 118 mg/dl (65-105)
[2022-12-23 14:05] VITALS: BP 137/54; PULSE 72; RESP 20; TEMP 36.1; O2SAT 99
[2022-12-23 14:22] LABS: Vancomycin Trough 15.8 ug/mL (10.0-20.0)
--- NOTE | 2022-12-23 15:28 | PC.NURSE ---
call to pharmacy to review vanco dose due 1400 and trough level
[2022-12-23 16:56] LABS: Glucose Point of Care 137 mg/dl (65-105)
[2022-12-23 17:32] VITALS: PULSE 72
[2022-12-23] MEDS: ATORVASTATIN 20 MG TABLET PO (20:29)
[2022-12-23] MEDS: ACETAMINOPHEN 325 MG TABLET 650 MG PO (20:34)
[2022-12-23 20:51] LABS: Glucose Point of Care 164 mg/dl (65-105)
[2022-12-23 21:42] VITALS: BP 136/56; PULSE 63; RESP 17; TEMP 36.3; O2SAT 99
[2022-12-24] MEDS: metroNIDAZOLE 500 MG/ISO 100ML 500 MG/100 ML BAG 100 MG IVPB ×3 (00:17→16:25)
[2022-12-24] MEDS: CEFEPIME 2 GM/NS 50 ML 2 GM/50 ML BAG IVPB ×2 (04:42→16:39)
[2022-12-24 05:35] VITALS: BP 132/65; PULSE 72; RESP 17; TEMP 36.5; O2SAT 100
[2022-12-24 06:03] LABS: Estimated CRCL calculation 56 ml/min; Estimated Glomerular Filt Rate > 60
[2022-12-24 07:48] LABS: Glucose Point of Care 99 mg/dl (65-105)
[2022-12-24] MEDS: MAGNESIUM OXIDE 400 MG TABLET PO (09:39)
[2022-12-24] MEDS: ACIDOPHILUS/BULGARICUS CHEWABLE TABLET 1 TABLET PO (09:39)
[2022-12-24] MEDS: allopurinoL 100 MG TABLET PO ×2 (09:39→16:26)
[2022-12-24] MEDS: busPIRone HCL 10 MG TABLET 30 MG PO ×2 (09:39→16:26)
[2022-12-24] MEDS: SERTRALINE HCL 50 MG TABLET 100 MG PO (09:40)
[2022-12-24 09:41] VITALS: PULSE 70
[2022-12-24] MEDS: METOPROLOL TARTRATE 50 MG TAB PO ×2 (09:41→16:26)
[2022-12-24] MEDS: FERROUS SULFATE 324 MG TABLET PO (09:41)
[2022-12-24] MEDS: ASPIRIN 81 MG ENTERIC TABLET PO (09:41)
[2022-12-24] MEDS: amLODIPine BESYLATE 5 MG TABLET 10 MG PO (09:42)
[2022-12-24] MEDS: CHOLECALCIFEROL 1,000 UNITS TABLET 1000 UNITS PO (09:42)
[2022-12-24] MEDS: ENOXAPARIN 40 MG/0.4 ML SYRINGE SUB-Q (09:43)
[2022-12-24] MEDS: SILVERGEL (ELTA) 45 ML 1 APPLIC TOPICAL (09:45)
[2022-12-24] MEDS: HYDROcodone/acetaminophen (*CRX) 5-325 MG TABLET 1 TAB PO ×2 (11:19→21:50)
--- NOTE | 2022-12-24 11:20 | PM.DS ---
DS: Admitting Diagnosis Discharge Date December 25, 2019 Admitting Diagnosis Osteomyelitis DS: Discharge Diagnosis Discharge Diagnosis (1) Acute osteomyelitis of left calcaneus: Code(s): M86.172 - Other acute osteomyelitis, left ankle and foot Status: Acute Assessment and Plan: Interval (2) Hypoglycemia: Code(s): E16.2 - Hypoglycemia, unspecified Status: Acute Assessment and Plan: Monitor (3) Lethargy: Code(s): R53.83 - Other fatigue Status: Acute Assessment and Plan: Improved (4) Hypertension: Code(s): I10 - Essential (primary) hypertension Status: Acute Assessment and Plan: Continue home medications. (5) Type 2 diabetes mellitus: Code(s): E11.9 - Type 2 diabetes mellitus without complications Status: Acute Assessment and Plan: Sliding scale insulin and monitor blood sugar. (6) Left kidney mass: Code(s): N28.89 - Other specified disorders of kidney and ureter Status: Acute Assessment and Plan: Will need outpatient CT or MRI. DS: Summary Hospital Course Hospital Course: Admitted for osteo likely chronic osteomyelitis. Patient will discharge on oral antibiotics. Time Spent with Patient Time attestation: Total time spent providing and/or coordinating discharge services: Exam Narrative: General: Mildly ill-appearing gentleman supine in bed. Weight: 75.5 kg. BMI: 24.6. HEENT: PERRL, EOMI. Sclera anicteric. Conjunctiva mildly injected. Changes of prior cataract surgery with lens implants. Tacky mucous membranes. Neck: Supple. No JVD or lymphadenopathy. Respiratory: Lungs are clear to auscultation bilaterally. Cardiovascular: Regular rate and rhythm with S1-S2. Gastrointestinal: Abdomen is soft, nontender, and nondistended with positive bowel sounds. Skin: Warm and dry. There is a wound on the left heel with a small amount of clear mucus-like drainage without purulence. There is no bleeding noted. Perhaps small amount of surrounding erythema but no induration. He is tender to palpation throughout the area. Wound was not probed. No subcutaneous emphysema noted. Extremities: No cyanosis or clubbing. He has some edema of both lower legs which appear symmetric. Peripheral pulses palpable. Neurological: Alert and oriented x4. Cranial nerves 2-12 are grossly intact. No gross focal deficits to casual conversation. Speech is clear. No facial asymmetry. Hand applications programmer are strong and equal bilaterally in upper extremities. Hip flexors 4/5. Psychiatric: Pleasant and cooperative with normal mood and affect. DS: Data Data Completed and Pending Labs on day of discharge: Labs from last 24 hours 12/24/22 12/24/22 12/23/22 07:43 05:41 20:30 Creatinine 0.90 Estim Creat Clear Calc 56 Estimated GFR > 60 POC Capillary Glucose 99 164 H Vancomycin Trough 12/23/22 12/23/22 12/23/22 16:47 13:23 11:39 Creatinine Estim Creat Clear Calc Estimated GFR POC Capillary Glucose 137 H 118 H Vancomycin Trough 15.8 Preliminary micro results at discharge 12/20/22 12:55 Blood Culture - Preliminary Blood 12/20/22 12:55 Blood Culture - Preliminary Blood Discharge Plan Discharge Attending physician on discharge: Ron Wilson Consulting providers: Dejan Ortiz Discharging Clinician: Ron Wilson Patient Disposition: Home, Self-Care Activity: no preference Diet: as tolerated Patient Instructions: Antibiotic Form Stand Alone Forms: General Discharge Information Follow-up/Referrals: Dejan Ortiz MD [Physician] - Discharge Medications: New amoxicillin-pot clavulanate 875-125 mg tablet 1 tablet PO Q12H Qty: 28 0RF doxycycline hyclate 100 mg capsule 100 mg PO DAILY Qty: 14 0RF Continued metformin 500 mg tablet 500 mg PO BID atorvastatin 20 mg tablet 20 mg PO HS sertraline 100 mg tablet 10
[2022-12-24 12:11] LABS: Glucose Point of Care 128 mg/dl (65-105)
[2022-12-24 14:00] VITALS: BP 127/67; PULSE 60; RESP 16; TEMP 36.3; O2SAT 98
[2022-12-24] MEDS: oxyCODONE HCL (*CRX) 5 MG TAB IR PO (15:13)
[2022-12-24 16:26] VITALS: PULSE 75
[2022-12-24 16:45] LABS: Glucose Point of Care 122 mg/dl (65-105)
[2022-12-24] MEDS: ATORVASTATIN 20 MG TABLET PO (20:09)
[2022-12-24 20:48] VITALS: BP 134/60; PULSE 58; RESP 18; TEMP 36.6; O2SAT 100
[2022-12-24 22:44] LABS: Glucose Point of Care 104 mg/dl (65-105)
[2022-12-25] VITALS (8 sets, daily range): BP systolic 131–140; BP diastolic 63–68; PULSE 66–72; RESP 18–20; TEMP 36.3–36.8; O2SAT 97–100
[2022-12-25] MEDS: metroNIDAZOLE 500 MG/ISO 100ML 500 MG/100 ML BAG 100 MG IVPB ×3 (00:37→15:31)
[2022-12-25] MEDS: CEFEPIME 2 GM/NS 50 ML 2 GM/50 ML BAG IVPB ×2 (05:38→16:22)
--- NOTE | 2022-12-25 07:32 | PM.DS ---
DS: Admitting Diagnosis Discharge Date December 25, 2022 Admitting Diagnosis Osteomyelitis DS: Discharge Diagnosis Discharge Diagnosis (1) Acute osteomyelitis of left calcaneus: Code(s): M86.172 - Other acute osteomyelitis, left ankle and foot Status: Acute Assessment and Plan: Interval (2) Hypoglycemia: Code(s): E16.2 - Hypoglycemia, unspecified Status: Acute Assessment and Plan: Monitor (3) Lethargy: Code(s): R53.83 - Other fatigue Status: Acute Assessment and Plan: Improved (4) Hypertension: Code(s): I10 - Essential (primary) hypertension Status: Acute Assessment and Plan: Continue home medications. (5) Type 2 diabetes mellitus: Code(s): E11.9 - Type 2 diabetes mellitus without complications Status: Acute Assessment and Plan: Sliding scale insulin and monitor blood sugar. (6) Left kidney mass: Code(s): N28.89 - Other specified disorders of kidney and ureter Status: Acute Assessment and Plan: Will need outpatient CT or MRI. DS: Summary Hospital Course Hospital Course: Admitted for chronic osteomyelitis.? Surgical evaluation was obtained no surgical interventions needed - patient will discharge on oral antibiotics. Time Spent with Patient Time attestation: Total time spent providing and/or coordinating discharge services: Exam Narrative: General: Mildly ill-appearing gentleman supine in bed. Weight: 75.5 kg. BMI: 24.6. HEENT: PERRL, EOMI. Sclera anicteric. Conjunctiva mildly injected. Changes of prior cataract surgery with lens implants. Tacky mucous membranes. Neck: Supple. No JVD or lymphadenopathy. Respiratory: Lungs are clear to auscultation bilaterally. Cardiovascular: Regular rate and rhythm with S1-S2. Gastrointestinal: Abdomen is soft, nontender, and nondistended with positive bowel sounds. Skin: Warm and dry. There is a wound on the left heel with a small amount of clear mucus-like drainage without purulence. There is no bleeding noted. Perhaps small amount of surrounding erythema but no induration. He is tender to palpation throughout the area. Wound was not probed. No subcutaneous emphysema noted. Extremities: No cyanosis or clubbing. He has some edema of both lower legs which appear symmetric. Peripheral pulses palpable. Neurological: Alert and oriented x4. Cranial nerves 2-12 are grossly intact. No gross focal deficits to casual conversation. Speech is clear. No facial asymmetry. Hand landmen are strong and equal bilaterally in upper extremities. Hip flexors 4/5. Psychiatric: Pleasant and cooperative with normal mood and affect. DS: Data Data Completed and Pending Labs on day of discharge: Labs from last 24 hours 12/24/22 12/24/22 12/24/22 22:42 16:38 11:47 POC Capillary Glucose 104 122 H 128 H 12/24/22 07:43 POC Capillary Glucose 99 Preliminary micro results at discharge 12/20/22 12:55 Blood Culture - Preliminary Blood 12/20/22 12:55 Blood Culture - Preliminary Blood Discharge Plan Discharge Attending physician on discharge: Ron Wilson Consulting providers: Dejan Ortiz Discharging Clinician: Ron Wilson Patient Disposition: Home, Self-Care Activity: no preference Diet: as tolerated Patient Instructions: Antibiotic Form Stand Alone Forms: General Discharge Information Follow-up/Referrals: Dejan Ortiz MD [Physician] - Discharge Medications: New doxycycline hyclate 100 mg capsule 100 mg PO DAILY Qty: 14 0RF amoxicillin-pot clavulanate 875-125 mg tablet 1 tablet PO Q12H Qty: 28 0RF Continued metformin 500 mg tablet 500 mg PO BID atorvastatin 20 mg tablet 20 mg PO HS sertraline 100 mg tablet 100 mg PO DAILY allopurinol 100 mg tablet 100 mg PO BID morphine 30 mg tablet extended release 30 mg PO BID aspirin 81 mg tablet,delayed rele
[2022-12-25 08:26] LABS: Glucose Point of Care 114 mg/dl (65-105)
[2022-12-25] MEDS: allopurinoL 100 MG TABLET PO ×2 (08:34→16:23)
[2022-12-25] MEDS: ACIDOPHILUS/BULGARICUS CHEWABLE TABLET 1 TABLET PO (08:34)
[2022-12-25] MEDS: amLODIPine BESYLATE 5 MG TABLET 10 MG PO (08:34)
[2022-12-25] MEDS: ENOXAPARIN 40 MG/0.4 ML SYRINGE SUB-Q (08:35)
[2022-12-25] MEDS: MAGNESIUM OXIDE 400 MG TABLET PO (08:35)
[2022-12-25] MEDS: SERTRALINE HCL 50 MG TABLET 100 MG PO (08:35)
[2022-12-25] MEDS: ASPIRIN 81 MG ENTERIC TABLET PO (08:35)
[2022-12-25] MEDS: FERROUS SULFATE 324 MG TABLET PO (08:35)
[2022-12-25] MEDS: CHOLECALCIFEROL 1,000 UNITS TABLET 1000 UNITS PO (08:35)
[2022-12-25] MEDS: busPIRone HCL 10 MG TABLET 30 MG PO ×2 (08:35→16:23)
[2022-12-25] MEDS: METOPROLOL TARTRATE 50 MG TAB PO ×2 (08:35→16:23)
[2022-12-25] MEDS: SILVERGEL (ELTA) 45 ML 1 APPLIC TOPICAL (08:36)
--- NOTE | 2022-12-25 08:48 | PCOTNOTE ---
Spoke with Dr. Wilson who reports patient does not need to be seen for therapy due to being discharged. Will cancel orders.
--- NOTE | 2022-12-25 10:32 | PM.IMPN ---
Progress Note: A&P Assessment and Plan (1) Acute osteomyelitis of left calcaneus: Code(s): M86.172 - Other acute osteomyelitis, left ankle and foot Status: Acute Assessment and Plan: Appreciate surgical input. No surgical debridement plan. This is likely chronic. Will transition to oral antibiotics. Awaiting placement. (2) Hypoglycemia: Code(s): E16.2 - Hypoglycemia, unspecified Status: Acute Assessment and Plan: Monitor (3) Lethargy: Code(s): R53.83 - Other fatigue Status: Acute Assessment and Plan: Improved (4) Hypertension: Code(s): I10 - Essential (primary) hypertension Status: Acute Assessment and Plan: Continue home medications. (5) Type 2 diabetes mellitus: Code(s): E11.9 - Type 2 diabetes mellitus without complications Status: Acute Assessment and Plan: Sliding scale insulin and monitor blood sugar. (6) Left kidney mass: Code(s): N28.89 - Other specified disorders of kidney and ureter Status: Acute Assessment and Plan: Will need outpatient CT or MRI. Subjective Date/time seen: 12/25/22 10:32 no new complaints Exam Narrative: General: Mildly ill-appearing gentleman supine in bed. Weight: 75.5 kg. BMI: 24.6. HEENT: PERRL, EOMI. Sclera anicteric. Conjunctiva mildly injected. Changes of prior cataract surgery with lens implants. Tacky mucous membranes. Neck: Supple. No JVD or lymphadenopathy. Respiratory: Lungs are clear to auscultation bilaterally. Cardiovascular: Regular rate and rhythm with S1-S2. Gastrointestinal: Abdomen is soft, nontender, and nondistended with positive bowel sounds. Skin: Warm and dry. There is a wound on the left heel with a small amount of clear mucus-like drainage without purulence. There is no bleeding noted. Perhaps small amount of surrounding erythema but no induration. He is tender to palpation throughout the area. Wound was not probed. No subcutaneous emphysema noted. Extremities: No cyanosis or clubbing. He has some edema of both lower legs which appear symmetric. Peripheral pulses palpable. Neurological: Alert and oriented x4. Cranial nerves 2-12 are grossly intact. No gross focal deficits to casual conversation. Speech is clear. No facial asymmetry. Hand multimedia project manager are strong and equal bilaterally in upper extremities. Hip flexors 4/5. Psychiatric: Pleasant and cooperative with normal mood and affect. Objective Data Vital Signs Vital Signs: Vital Signs - 24 hr 12/24/22 16:26 12/24/22 14:00 12/24/22 20:48 Temperature 97.4 F L 97.8 F Pulse Rate 75 60 58 L Respiratory Rate 16 18 Blood Pressure 127/67 134/60 Pulse Oximetry 98 100 Oxygen Delivery 12/25/22 03:29 12/25/22 08:00 12/25/22 08:35 Temperature 97.3 F L Pulse Rate 66 70 Respiratory Rate 18 Blood Pressure 140/63 Pulse Oximetry 99 99 Oxygen Delivery Room Air 12/25/22 07:51 12/25/22 09:35 Temperature Pulse Rate Respiratory Rate Blood Pressure Pulse Oximetry 97 Oxygen Delivery Room Air Room Air Intake/Output Intake/Output: Intake & Output 12/22/22 12/23/22 12/24/22 12/25/22 23:59 23:59 23:59 23:59 Intake Total 1860 1800 1070 510 Output Total 1125 50 1250 300 Balance 735 1750 -180 210 Meds/Results Medications: Active Medications Generic Name Dose Route Start Last Admin Trade Name Freq PRN Reason Stop Dose Admin Acetaminophen 650 mg 12/20/22 17:16 12/23/22 20:34 Acetaminophen 325 Mg Tablet PO 650 mg Q6H PRN Administration Mild Pain (1-3) or Fever Acetaminophen 650 mg 12/20/22 20:42 Acetaminophen 325 Mg Tablet PO Q6H PRN Mild Pain (1-3) or Fever Hydrocodone Bitart/Acetaminophen 1 tab 12/20/22 20:42 12/24/22 21:50 Hydrocodone/Acetaminophen (*Crx) 5-325 Mg Tablet PO 1 tab Q6H PRN Administration Pain Rated 4-6 Allopurinol 100 mg 12/20/22 20:50 12/25/22 08:34 Allopurinol 100 Mg Table
[2022-12-25 12:06] LABS: Glucose Point of Care 138 mg/dl (65-105)
--- NOTE | 2022-12-25 12:50 | PCNFU ---
Nutrition Follow-Up Complete: Suboptimal po intake related to alertness and appetite as evidenced by nursing report goal: PO intake 75% or greater for meals and supplements Patient has limited progress towards goal. We will continue current goal. Pt current nutrition is DBCC Last recorded weight is 71.9 kg. Bowel Motility:+Bm reported 12/22 Labs Reviewed:12/24 labs: Glu 117,Na 135, Hct 29.1,Hgb 9.5 Meds Noted:Mag oxide, Lopressor, Lovenox, Ferrous Sulfate. Skin: DM ulcer-left foot. Additional Notes: Patient remains on DBCC with Glucerna Shakes TID. Oral Intake as been poor 0-25% of meals. PO intake encouraged. Agree with diet orders. Monitor intake, wt, labs. Follow up in 5 days.
[2022-12-25] MEDS: LACTULOSE 20 GM/30 ML UDC 15 GM PO (13:23)
[2022-12-25 17:07] LABS: Glucose Point of Care 153 mg/dl (65-105)
[2022-12-25] MEDS: HYDROcodone/acetaminophen (*CRX) 5-325 MG TABLET 1 TAB PO (20:17)
[2022-12-25] MEDS: ATORVASTATIN 20 MG TABLET PO (20:17)
[2022-12-26] VITALS (8 sets, daily range): BP systolic 117–130; BP diastolic 57–66; PULSE 70–86; RESP 17–18; TEMP 36.6; O2SAT 95–100
[2022-12-26] MEDS: metroNIDAZOLE 500 MG/ISO 100ML 500 MG/100 ML BAG 100 MG IVPB ×2 (00:57→08:23)
[2022-12-26] MEDS: CEFEPIME 2 GM/NS 50 ML 2 GM/50 ML BAG IVPB (06:16)
[2022-12-26 08:24] LABS: Glucose Point of Care 97 mg/dl (65-105)
[2022-12-26] MEDS: allopurinoL 100 MG TABLET PO ×2 (08:24→16:41)
[2022-12-26] MEDS: ASPIRIN 81 MG ENTERIC TABLET PO (08:24)
[2022-12-26] MEDS: ACIDOPHILUS/BULGARICUS CHEWABLE TABLET 1 TABLET PO (08:24)
[2022-12-26] MEDS: busPIRone HCL 10 MG TABLET 30 MG PO ×2 (08:24→16:41)
[2022-12-26] MEDS: SERTRALINE HCL 50 MG TABLET 100 MG PO (08:25)
[2022-12-26] MEDS: CHOLECALCIFEROL 1,000 UNITS TABLET 1000 UNITS PO (08:25)
[2022-12-26] MEDS: MAGNESIUM OXIDE 400 MG TABLET PO (08:25)
[2022-12-26] MEDS: SILVERGEL (ELTA) 45 ML 1 APPLIC TOPICAL (08:25)
[2022-12-26] MEDS: METOPROLOL TARTRATE 50 MG TAB PO ×2 (08:25→16:41)
[2022-12-26] MEDS: FERROUS SULFATE 324 MG TABLET PO (08:25)
[2022-12-26] MEDS: ENOXAPARIN 40 MG/0.4 ML SYRINGE SUB-Q (08:25)
[2022-12-26] MEDS: amLODIPine BESYLATE 5 MG TABLET 10 MG PO (08:25)
--- NOTE | 2022-12-26 10:40 | PC.NURSE ---
On 12/26/22, the student, [Sobeida Weiss], provided care and completed [facility] documentation on this patient. I have reviewed the student's documentation and agree with the findings.
[2022-12-26 11:53] LABS: Hematocrit 24.2 % (42.0-52.0); Hemoglobin 7.7 g/dL (14.0-18.0); Mean Corpuscular HGB Conc 31.8 g/dl (32-36); Mean Corpuscular Hemoglobin 29.6 pg (26-34); Mean Corpuscular Volume 93.1 fl (80-100); Mean Platelet Volume 10.8 fl (7.4-10.4); Platelet Count Result 401 k/mm3 (150-375); Red Cell Distribution Width 19.5 % (11.5-14.5); White Blood Count 15.4 K/mm3 (4.5-10.0)
[2022-12-26 12:09] LABS: Glucose Point of Care 130 mg/dl (65-105)
[2022-12-26 12:12] LABS: Anion Gap 10 mmol/L (8-16); Blood Urea Nitrogen 47 mg/dL (9-20); Calcium 8.4 mg/dL (8.4-10.2); Carbon Dioxide 19 mmol/L (22-30); Chloride 106 mmol/L (98-107); Estimated CRCL calculation 56 ml/min; Estimated Glomerular Filt Rate > 60; Glucose 139 mg/dL (65-110); Potassium 3.5 mmol/L (3.4-5.0); Sodium 135 mmol/L (137-145)
[2022-12-26 12:42] LABS: Immunochemical Fecal Occult Bl Positive (N)
[2022-12-26 12:43] LABS: IFOB Positive Control Positive
--- NOTE | 2022-12-26 12:48 | PM.IMPN ---
Progress Note: A&P Assessment and Plan (1) Acute osteomyelitis of left calcaneus: Code(s): M86.172 - Other acute osteomyelitis, left ankle and foot Status: Acute Assessment and Plan: Appreciate surgical input. No surgical debridement plan. This is likely chronic. Will transition to oral antibiotics. Awaiting placement. (2) Hypoglycemia: Code(s): E16.2 - Hypoglycemia, unspecified Status: Acute Assessment and Plan: improved (3) Lethargy: Code(s): R53.83 - Other fatigue Status: Acute Assessment and Plan: Improved (4) Hypertension: Code(s): I10 - Essential (primary) hypertension Status: Acute Assessment and Plan: Continue home medications. (5) Type 2 diabetes mellitus: Code(s): E11.9 - Type 2 diabetes mellitus without complications Status: Acute Assessment and Plan: Sliding scale insulin and monitor blood sugar. (6) Left kidney mass: Code(s): N28.89 - Other specified disorders of kidney and ureter Status: Acute Assessment and Plan: Will need outpatient CT or MRI. (7) Anemia: Code(s): D64.9 - Anemia, unspecified Status: Acute Assessment and Plan: Watch CBC tomorrow transfuse if hb less than 7 Slight hb drop today to 7.7 Subjective Date/time seen: 12/26/22 12:48 82-year-old gentleman with hypertension, hyperlipidemia, type 2 diabetes mellitus, and chronic anemia who presented to the emergency department via EMS from [place] for evaluation of lethargy. Staff at his longterm facility felt that the patient was bit more lethargic than usual and there were concerns that his chronic left heel wound was worse which prompted the call to 911. On EMS arrival his glucose was 66, he was given glucose, and on arrival to the ED his random glucose was 67.? Pt feels lethargic, glucose better, wcc still up, Hb slight drop today Transition to oral ABX watch cbc consider DC david Review of Systems Review of Systems: Tired weak Exam Narrative: General: Frail elderly tall thin man Neck: Supple. No JVD or lymphadenopathy. Respiratory: Lungs are clear to auscultation bilaterally. Cardiovascular: Regular rate and rhythm with S1-S2. Gastrointestinal: Abdomen is soft, nontender, and nondistended with positive bowel sounds. Skin: Warm and dry. Left heel small wound. With surgical boot Neurological: Alert and oriented x4. Cranial nerves 2-12 are grossly intact. No gross focal deficits to casual conversation. Speech is clear. No facial asymmetry. Hand wall to wall carpet installer are strong and equal bilaterally in upper extremities. Hip flexors 4/5. Psychiatric: Pleasant and cooperative with normal mood and affect. Objective Data Vital Signs Vital Signs: Vital Signs - 24 hr 12/25/22 14:00 12/25/22 16:23 12/25/22 20:27 Temperature 36.8 C 36.5 C Pulse Rate 69 72 71 Respiratory Rate 18 20 Blood Pressure 131/68 132/63 Pulse Oximetry 100 99 Oxygen Delivery 12/25/22 20:00 12/26/22 03:48 12/26/22 08:00 Temperature 36.6 C Pulse Rate 71 86 Respiratory Rate 20 18 Blood Pressure 130/66 Pulse Oximetry 99 100 100 Oxygen Delivery Room Air Room Air 12/26/22 08:25 12/26/22 08:46 Temperature Pulse Rate 70 Respiratory Rate Blood Pressure Pulse Oximetry 97 Oxygen Delivery Room Air Intake/Output Intake/Output: Intake & Output 12/23/22 12/24/22 12/25/22 12/26/22 23:59 23:59 23:59 23:59 Intake Total 1800 1320 1260 730 Output Total 50 1250 850 600 Balance 1750 70 410 130 Meds/Results Medications: Active Medications Generic Name Dose Route Start Last Admin Trade Name Freq PRN Reason Stop Dose Admin Acetaminophen 650 mg 12/20/22 17:16 12/23/22 20:34 Acetaminophen 325 Mg Tablet PO 650 mg Q6H PRN Administration Mild Pain (1-3) or Fever Acetaminophen 650 mg 12/20/22 20:42 Acetaminophen 325 Mg Tablet PO Q6H PRN Mild Pain (1-3) or Fev
[2022-12-26 16:48] LABS: Glucose Point of Care 143 mg/dl (65-105)
[2022-12-26] MEDS: AMOXICILLIN/CLAVULANATE K 875-125 MG TAB 1 TABLET PO (21:57)
[2022-12-26] MEDS: ATORVASTATIN 20 MG TABLET PO (21:57)
[2022-12-26] MEDS: DOXYCYCLINE HYCLATE 100 MG TABLET PO (21:57)
[2022-12-27] VITALS (9 sets, daily range): BP systolic 114–128; BP diastolic 46–58; PULSE 66–86; RESP 13–20; TEMP 36.4–36.9; O2SAT 100
[2022-12-27 08:09] LABS: Glucose Point of Care 127 mg/dl (65-105)
[2022-12-27] MEDS: allopurinoL 100 MG TABLET PO (08:26)
[2022-12-27] MEDS: SERTRALINE HCL 50 MG TABLET 100 MG PO (08:26)
[2022-12-27 08:27] LABS: Mean Corpuscular HGB Conc 32.4 g/dl (32-36); Mean Corpuscular Hemoglobin 29.2 pg (26-34); Mean Platelet Volume 10.8 fl (7.4-10.4); Platelet Count Result 284 k/mm3 (150-375); Red Blood Count 2.09 M/mm3 (4.6-6.20); Red Cell Distribution Width 19.4 % (11.5-14.5)
[2022-12-27] MEDS: METOPROLOL TARTRATE 50 MG TAB PO (08:30)
[2022-12-27] MEDS: FERROUS SULFATE 324 MG TABLET PO (08:31)
[2022-12-27] MEDS: amLODIPine BESYLATE 5 MG TABLET 10 MG PO (08:31)
[2022-12-27] MEDS: DOXYCYCLINE HYCLATE 100 MG TABLET PO (08:31)
[2022-12-27] MEDS: MAGNESIUM OXIDE 400 MG TABLET PO (08:31)
[2022-12-27] MEDS: busPIRone HCL 10 MG TABLET 30 MG PO (08:31)
[2022-12-27] MEDS: ASPIRIN 81 MG ENTERIC TABLET PO (08:31)
[2022-12-27] MEDS: AMOXICILLIN/CLAVULANATE K 875-125 MG TAB 1 TABLET PO (08:31)
[2022-12-27] MEDS: CHOLECALCIFEROL 1,000 UNITS TABLET 1000 UNITS PO (08:31)
[2022-12-27] MEDS: ACIDOPHILUS/BULGARICUS CHEWABLE TABLET 1 TABLET PO (08:31)
[2022-12-27] MEDS: SILVERGEL (ELTA) 45 ML 1 APPLIC TOPICAL (08:33)
[2022-12-27 08:34] LABS: Hematocrit 18.8 % (42.0-52.0); Hemoglobin 6.1 g/dL (14.0-18.0)
[2022-12-27 09:02] LABS: Anion Gap 6 mmol/L (8-16); Blood Urea Nitrogen 51 mg/dL (9-20); Calcium 8.2 mg/dL (8.4-10.2); Carbon Dioxide 22 mmol/L (22-30); Chloride 107 mmol/L (98-107); Estimated CRCL calculation 56 ml/min; Estimated Glomerular Filt Rate > 60; Glucose 121 mg/dL (65-110); Potassium 3.5 mmol/L (3.4-5.0); Sodium 135 mmol/L (137-145)
[2022-12-27 10:42] LABS: Iron 112 ug/dL (49-181)
--- NOTE | 2022-12-27 10:48 | PC.NURSE ---
On 12/27/22, the student, [Iker Castle], provided care and completed [facility] documentation on this patient. I have reviewed the student's documentation and agree with the findings.
[2022-12-27 11:06] LABS: Percent Iron Saturation 51 % (20-50)
[2022-12-27] MEDS: SODIUM CHLORIDE 0.9% IV 250 ML 30 ML IV CONT (11:15)
[2022-12-27] MEDS: PANTOPRAZOLE SODIUM IV 40 MG VIAL IV PUSH (11:16)
--- NOTE | 2022-12-27 11:24 | PM.IMPN ---
Subjective Date/time seen: 12/27/22 11:24 patient appears tired Objective Data Vital Signs Vital Signs: Vital Signs - 24 hr 12/26/22 13:55 12/26/22 16:41 12/26/22 19:26 Temperature 97.8 F 97.9 F Pulse Rate 73 80 74 Respiratory Rate 17 17 Blood Pressure 119/57 L 117/66 Pulse Oximetry 100 95 Oxygen Delivery 12/26/22 20:00 12/27/22 03:36 12/27/22 08:30 Temperature 97.8 F Pulse Rate 74 73 86 Respiratory Rate 17 18 Blood Pressure 125/53 L Pulse Oximetry 95 100 Oxygen Delivery Room Air 12/27/22 09:40 Temperature Pulse Rate Respiratory Rate Blood Pressure Pulse Oximetry Oxygen Delivery Room Air Intake/Output Intake/Output: Intake & Output 12/24/22 12/25/22 12/26/22 12/27/22 23:59 23:59 23:59 23:59 Intake Total 1320 / 1320 1260 / 1260 1090 / 1090 860 / 860 Output Total 1250 / 1250 850 / 850 600 / 600 300 / 300 Balance 70 / 70 410 / 410 490 / 490 560 / 560 Meds/Results Medications: Active Medications Generic Name Dose Route Start Last Admin Trade Name Freq PRN Reason Stop Dose Admin Acetaminophen 650 mg 12/20/22 17:16 12/23/22 20:34 Acetaminophen 325 Mg Tablet PO 650 mg Q6H PRN Administration Mild Pain (1-3) or Fever Acetaminophen 650 mg 12/20/22 20:42 Acetaminophen 325 Mg Tablet PO Q6H PRN Mild Pain (1-3) or Fever Hydrocodone Bitart/Acetaminophen 1 tab 12/20/22 20:42 12/25/22 20:17 Hydrocodone/Acetaminophen (*Crx) 5-325 Mg Tablet PO 1 tab Q6H PRN Administration Pain Rated 4-6 Allopurinol 100 mg 12/20/22 20:50 12/27/22 08:26 Allopurinol 100 Mg Tablet PO 100 mg BID RADHA Administration Amlodipine Besylate 10 mg 12/21/22 09:00 12/27/22 08:31 Amlodipine Besylate 5 Mg Tablet PO 10 mg DAILY RADHA Administration Amoxicillin/Clavulanate Potassium 1 tablet 12/26/22 21:00 12/27/22 08:31 Amoxicillin/Clavulanate K 875-125 Mg Tab PO 01/09/23 09:01 1 tablet Q12HR RADHA Administration Aspirin 81 mg 12/21/22 09:00 12/27/22 08:31 Aspirin 81 Mg Enteric Tablet PO 81 mg DAILY RADHA Administration Atorvastatin Calcium 20 mg 12/20/22 21:00 12/26/22 21:57 Atorvastatin 20 Mg Tablet PO 20 mg HS RADHA Administration Buspirone HCl 30 mg 12/20/22 20:50 12/27/22 08:31 Buspirone Hcl 10 Mg Tablet PO 30 mg BID RADHA Administration Dextrose 12.5 gm 12/20/22 17:16 Dextrose 50% 25 Gm/50 Ml Syringe IV PUSH PRN PRN Hypoglycemia Protocol Doxycycline Hyclate 100 mg 12/26/22 21:00 12/27/22 08:31 Doxycycline Hyclate 100 Mg Tablet PO 01/09/23 09:01 100 mg Q12HR RADHA Administration Enoxaparin Sodium 40 mg 12/21/22 09:00 12/27/22 08:43 Enoxaparin 40 Mg/0.4 Ml Syringe SUB-Q Not Given DAILY [facility] Ferrous Sulfate 324 mg 12/21/22 09:00 12/27/22 08:31 Ferrous Sulfate 324 Mg Tablet PO 324 mg DAILY RADHA Administration Glucagon 1 mg 12/20/22 17:16 Glucagon For Inj 1 Mg Vial IM PRN PRN Hypoglycemia Protocol Glucose 15 gm 12/20/22 17:16 Glucose Oral Gel 15 Gm Of Glucse In 37.5 Gm Tube PO PRN PRN Hypoglycemia Protocol Dextrose 1,000 mls @ 100 mls/hr 12/20/22 17:16 Dextrose 5% 1,000 Ml IVPB PRN PRN Hypoglycemia Protocol Sodium Chloride 250 mls @ 30 mls/hr 12/27/22 08:57 12/27/22 11:15 Normal Saline Iv IV CONT 12/27/22 17:16 30 mls/hr .Q8H20M STA Administration Insulin Aspart 2 - 5 units 12/21/22 08:00 12/27/22 08:32 Insulin Aspart (*Bkc) 100 Units/Ml SUB-Q Not Given TIDWM RADHA Protocol Lactobacillus Acidophilus 1 tablet 12/21/22 09:00 12/27/22 08:31 Acidophilus/Bulgaricus Chewable Tablet PO 1 tablet DAILY RADHA Administration Lactulose 15 gm 12/20/22 20:47 12/25/22 13:23 Lactulose 20 Gm/30 Ml Udc PO 15 gm PRN PRN Administration Constipation Magnesium Oxide 400 mg 12/21/22 09:00 12/27/22 08:31 Magnesium Oxide 400 Mg Tablet PO 400 mg DAILY
--- NOTE | 2022-12-27 11:26 | PCPTNOTE ---
Patient unable to be seen for PT at this time due to patient's low hemoglobin and patient about to get blood transfusion per RN.
--- NOTE | 2022-12-27 11:35 | PCOTNOTE ---
Patient unable to be seen this A.M. due to having decreased hemoglobin, will get blood today. Per RN, check back this afternoon.
--- NOTE | 2022-12-27 11:41 | PM.DS ---
DS: Admitting Diagnosis Discharge Date 12/27/2022 Admitting Diagnosis Osteomyelitis Diabetes DS: Discharge Diagnosis Discharge Diagnosis (1) Anemia: Code(s): D64.9 - Anemia, unspecified Status: Acute (2) Osteomyelitis of left foot: Code(s): M86.9 - Osteomyelitis, unspecified Status: Chronic (3) Type 2 diabetes mellitus: Code(s): E11.9 - Type 2 diabetes mellitus without complications Status: Acute DS: Summary Hospital Course Hospital Course: Patient is an 82-year-old male with a past medical history of hypertension, hyperlipidemia, diabetes mellitus was admitted with osteomyelitis of left foot. Surgery was consulted. Patient was deemed not a candidate for surgical intervention. He was started on IV antibiotics which were later on changed to oral antibiotics. This morning patient was found to have a low hemoglobin of less than 7 with elevated BUN. A stool occult was positive. The plan was to consult GI. Before that I had a discussion with the patient's daughter. According to her, patient has been living in alf for a while. He has some psych issues and has been depressed. He does not participate in any activity. The daughter did not want to continue medical treatment and opted for comfort care. Comfort care orders have been initiated and patient is being discharged to [place] with comfort care Time Spent with Patient Time attestation: Total time spent providing and/or coordinating discharge services: Exam Narrative: General: Frail elderly tall thin man Neck: Supple. No JVD or lymphadenopathy. Respiratory: Lungs are clear to auscultation bilaterally. Cardiovascular: Regular rate and rhythm with S1-S2. Gastrointestinal: Abdomen is soft, nontender, and nondistended with positive bowel sounds. Skin: Warm and dry. Left heel small wound. With surgical boot Neurological: Alert and oriented x4. Cranial nerves 2-12 are grossly intact. No gross focal deficits to casual conversation. Speech is clear. No facial asymmetry. Hand arcade attendant are strong and equal bilaterally in upper extremities. Hip flexors 4/5. Psychiatric: Pleasant and cooperative with normal mood and affect. DS: Data Data Completed and Pending Labs on day of discharge: Labs from last 24 hours 12/27/22 12/27/22 12/27/22 09:17 09:17 08:08 WBC RBC Hgb Hct MCV MCH MCHC RDW Plt Count MPV Sodium 135 L Potassium 3.5 Chloride 107 Carbon Dioxide 22 Anion Gap 6 L BUN 51 H Creatinine 0.90 Estim Creat Clear Calc 56 Estimated GFR > 60 Glucose 121 H POC Capillary Glucose Calcium 8.2 L Iron 112 TIBC 218 L % Saturation Pending Ferritin 216.00 Stl Occult Blood (IFOB) Blood Type A Positive Antibody Screen Negative Crossmatch See Detail 12/27/22 12/27/22 12/26/22 08:08 08:03 16:40 WBC 12.0 H RBC 2.09 L Hgb 6.1 L* Hct 18.8 L* MCV 90.0 MCH 29.2 MCHC 32.4 RDW 19.4 H Plt Count 284 MPV 10.8 H Sodium Potassium Chloride Carbon Dioxide Anion Gap BUN Creatinine Estim Creat Clear Calc Estimated GFR Glucose POC Capillary Glucose 127 H 143 H Calcium Iron TIBC % Saturation Ferritin Stl Occult Blood (IFOB) Blood Type Antibody Screen Crossmatch 12/26/22 12/26/22 12/26/22 12:27 12:00 11:31 WBC RBC Hgb Hct MCV MCH MCHC RDW Plt Count MPV Sodium 135 L Potassium 3.5 Chloride 106 Carbon Dioxide 19 L Anion Gap 10 BUN 47 H D Creatinine 0.90 Estim Creat Clear Calc 56 Estimated GFR > 60 Glucose 139 H POC Capillary Glucose 130 H Calcium 8.4 Iron TIBC % Saturation Ferritin Stl Occult Blood (IFOB) Positive H Blood Type Antibody Screen Crossmatch 12/26/22 11:31 WBC 15.4 H RBC 2.60 L Hgb 7.7 L
--- NOTE | 2022-12-27 12:45 | PCOTNOTE ---
Per RN, Patient not to be seen for therapy services, Patient is going hospice as of this afternoon.
--- NOTE | 2022-12-27 14:18 | PC.NURSE ---
On 12/27/22, the student, [Tori Mendoza], provided care and completed [facility] documentation on this patient. I have reviewed the student's documentation and agree with the findings.
--- NOTE | 2022-12-28 08:28 | PCOTNOTE ---
D/C pt. from therapy services as pt. is transitioning to comfort care/hospice measures
--- NOTE | 2022-12-28 08:30 | PM.IMPN ---
Progress Note: A&P Assessment and Plan (1) Acute osteomyelitis of left calcaneus: Code(s): M86.172 - Other acute osteomyelitis, left ankle and foot Status: Acute Assessment and Plan: Appreciate surgical input. No surgical debridement plan. (2) Hypoglycemia: Code(s): E16.2 - Hypoglycemia, unspecified Status: Acute Assessment and Plan: improved (3) Lethargy: Code(s): R53.83 - Other fatigue Status: Acute Assessment and Plan: Improved (4) Hypertension: Code(s): I10 - Essential (primary) hypertension Status: Acute Assessment and Plan: Continue home medications. (5) Type 2 diabetes mellitus: Code(s): E11.9 - Type 2 diabetes mellitus without complications Status: Acute Assessment and Plan: Sliding scale insulin and monitor blood sugar. (6) Left kidney mass: Code(s): N28.89 - Other specified disorders of kidney and ureter Status: Acute (7) Anemia: Code(s): D64.9 - Anemia, unspecified Status: Acute Plan PATIENT TRANSITIONED TO COMFORT CARE Subjective Date/time seen: 12/28/22 08:30 THIS NOTE IS FOR 12/27/22 Review of Systems Review of Systems: Tired weak Exam Narrative: General: Frail elderly tall thin man Neck: Supple. No JVD or lymphadenopathy. Respiratory: Lungs are clear to auscultation bilaterally. Cardiovascular: Regular rate and rhythm with S1-S2. Gastrointestinal: Abdomen is soft, nontender, and nondistended with positive bowel sounds. Skin: Warm and dry. Left heel small wound. With surgical boot Neurological: Alert and oriented x4. Cranial nerves 2-12 are grossly intact. No gross focal deficits to casual conversation. Speech is clear. No facial asymmetry. Hand grading clerk are strong and equal bilaterally in upper extremities. Hip flexors 4/5. Psychiatric: Pleasant and cooperative with normal mood and affect. Objective Data Vital Signs Vital Signs: Vital Signs - 24 hr 12/27/22 09:40 12/27/22 11:27 12/27/22 11:44 Temperature 98.5 F 97.8 F Pulse Rate 73 69 Respiratory Rate 18 16 Blood Pressure 114/52 L 120/46 L Pulse Oximetry 100 100 Oxygen Delivery Room Air 12/27/22 12:44 12/27/22 14:00 12/27/22 15:00 Temperature 97.5 F L 97.6 F 97.8 F Pulse Rate 70 70 66 Respiratory Rate 13 13 14 Blood Pressure 118/53 L 118/53 L 123/58 L Pulse Oximetry 100 100 100 Oxygen Delivery 12/27/22 19:16 12/27/22 20:00 Temperature 97.6 F Pulse Rate 76 76 Respiratory Rate 20 20 Blood Pressure 128/46 L Pulse Oximetry 100 100 Oxygen Delivery Room Air Intake/Output Intake/Output: Intake & Output 12/25/22 12/26/22 12/27/22 12/28/22 23:59 23:59 23:59 23:59 Intake Total 1260 / 1260 1090 / 1090 2130 / 2130 100 / 100 Output Total 850 / 850 600 / 600 1700 / 1700 300 / 300 Balance 410 / 410 490 / 490 430 / 430 -200 / -200 Meds/Results Medications: Active Medications Generic Name Dose Route Start Last Admin Trade Name Freq PRN Reason Stop Dose Admin Acetaminophen 650 mg 12/20/22 17:16 12/23/22 20:34 Acetaminophen 325 Mg Tablet PO 650 mg Q6H PRN Administration Mild Pain (1-3) or Fever Acetaminophen 650 mg 12/20/22 20:42 Acetaminophen 325 Mg Tablet PO Q6H PRN Mild Pain (1-3) or Fever Hydrocodone Bitart/Acetaminophen 1 tab 12/20/22 20:42 12/25/22 20:17 Hydrocodone/Acetaminophen (*Crx) 5-325 Mg Tablet PO 1 tab Q6H PRN Administration Pain Rated 4-6 Dextrose 12.5 gm 12/20/22 17:16 Dextrose 50% 25 Gm/50 Ml Syringe IV PUSH PRN PRN Hypoglycemia Protocol Glucagon 1 mg 12/20/22 17:16 Glucagon For Inj 1 Mg Vial IM PRN PRN Hypoglycemia Protocol Glucose 15 gm 12/20/22 17:16 Glucose Oral Gel 15 Gm Of Glucse In 37.5 Gm Tube PO PRN PRN Hypoglycemia Protocol Dextrose 1,000 mls @ 100 mls/hr 12/20/22 17:16 Dextrose 5% 1,000 Ml IVPB PRN PRN H
[2022-12-28] MEDS: MAGNESIUM OXIDE 400 MG TABLET PO (09:31)
[2022-12-28] MEDS: SILVERGEL (ELTA) 45 ML 1 APPLIC TOPICAL (09:32)
--- NOTE | 2022-12-28 12:30 | PC.NURSE ---
On 12/28/22, the student, [Denae Dewey], provided care and completed [facility] documentation on this patient. I have reviewed the student's documentation and agree with the findings.
== END 2022-12-28 13:31 | disposition hospice, home (50) | DRG 638 ==
LOC: ANHED 13:23 → ANH2MED 16:55
PROVIDERS: Chiropractor; Emergency Medicine; Family Medicine; Physician Assistant; Admitting Provider Internal Medicine; Emergency Provider Preventive Medicine Aerospace Medicine; PCP Internal Medicine; Visit Provider Hospitalist
DX: E11.69 Type 2 diabetes mellitus with other specified complication (principal); L97.426 Non-pressure chronic ulcer of left heel and midfoot with bone involvement without evidence of necrosis; M86.172 Other acute osteomyelitis, left ankle and foot; E11.621 Type 2 diabetes mellitus with foot ulcer; E11.649 Type 2 diabetes mellitus with hypoglycemia without coma; I10 Essential (primary) hypertension; E78.5 Hyperlipidemia, unspecified; D50.9 Iron deficiency anemia, unspecified; L40.9 Psoriasis, unspecified; N28.89 Other specified disorders of kidney and ureter; M10.9 Gout, unspecified; R19.5 Other fecal abnormalities; G89.4 Chronic pain syndrome; Z51.5 Encounter for palliative care
CPT/HCPCS: 36415; 36430; 70450; 71045; 73630; 74177; 80048; 80053; 80202; 81001; 82274; 82565; 82728; 82948; 83036; 83540; 83550; 83605; 83735; 84484; 85025; 85027; 85610; 85730; 86140; 86850; 86900; 86901; 86923; 87040; 93005; 93922; 96361; 96365; 96367; 96375; 96376; 97161; 97165; 97530; 97535; 99285; A9270; C9113; G0378; J0692; J1650; J2405; J3370; J7030; J7050; J7120; P9016; Q9967

== ENCOUNTER 2024-05-26 14:52 | Emergency (ER) | payer BC, SELFPAY ==
[2024-05-26 14:56] VITALS: BP 138/73; PULSE 110; RESP 20; O2SAT 100
[2024-05-26 15:31] VITALS: BP 137/85; PULSE 110; RESP 16; O2SAT 100
[2024-05-26 16:08] LABS: Basophils Percent Auto 0.3 % (0.2-1.2); Eosinophils Absolute Auto 0.1 K/mm3 (0-0.3); Eosinophils Percent Auto 0.8 % (0-4.4); Hematocrit 36.6 % (42.0-52.0); Hemoglobin 12.4 g/dL (14.0-18.0); Immature Granulocyte Absolute 0.04 K/mm3 (0.00-0.031); Immature Granulocyte Percent A 0.5 % (0-0.5); Lymphocytes Absolute Auto 1.44 K/mm3 (0.9-3.2); Lymphocytes Percent Auto 16.4 % (18.3-44.2); Mean Corpuscular HGB Conc 33.9 g/dl (32-36); Mean Corpuscular Hemoglobin 34.2 pg (26-34); Mean Corpuscular Volume 100.8 fl (80-100); Mean Platelet Volume 10.8 fl (7.4-10.4); Monocytes Absolute Auto 0.5 K/mm3 (0.1-0.6); Monocytes Percent Auto 5.7 % (2.6-8.5); Neutrophils Absolute Auto 6.7 K/mm3 (1.3-6.7); Neutrophils Percent Auto 76.3 % (45.5-73.1); Platelet Count Result 296 k/mm3 (150-375); Red Blood Count 3.63 M/mm3 (4.6-6.20); White Blood Count 8.8 K/mm3 (4.5-10.0)
[2024-05-26 16:18] LABS: INR 1.1; Prothrombin Time 14.4 Seconds (11.1-14.7)
[2024-05-26 16:19] LABS: Partial Thromboplastin Time 30.6 Seconds (22.3-36.8)
[2024-05-26 16:27] LABS: Alanine Aminotransferase 14 U/L (6-50); Albumin Level 4.1 g/dL (3.5-5.1); Alkaline Phosphatase 94 U/L (38-126); Anion Gap 7 mmol/L (4-12); Aspartate Amino Transferase 26 U/L (17-59); Bilirubin,Total 0.8 mg/dL (0.2-1.3); Blood Urea Nitrogen 22 mg/dL (9-20); Calcium 9.8 mg/dL (8.4-10.2); Carbon Dioxide 32 mmol/L (22-30); Chloride 100 mmol/L (98-107); Estimated CRCL calculation 38 ml/min; Estimated Glomerular Filt Rate 58; Glucose 121 mg/dL (65-110); Potassium 3.9 mmol/L (3.4-5.0); Sodium 139 mmol/L (137-145)
[2024-05-26 16:46] VITALS: BP 113/74; PULSE 107; RESP 14; O2SAT 99
--- NOTE | 2024-05-26 18:29 | PC.NURSE ---
4 unsuccessful attempts at NG tube. Pt tolerated procedure poorly. Pt spitting water out at nurses. EDP Dr. Gomes aware.
--- NOTE | 2024-05-26 18:39 | ED.GENADULT ---
HPI - General Adult General Chief complaint: GI Bleed Stated complaint: coffee ground emesis Time Seen by Provider: 05/26/24 16:04 History of Present Illness HPI narrative: Patient is a 84-year-old gentleman who presents emergency department with chief complaint of possible coffee-ground emesis. The patient reports that he drink some tea last night and had some vomiting the patient reports that he feels fine now and wants to go back to the facility where he is from patient currently has no complaints does not feel nauseated denies abdominal pain Related Data Home Medications Medication Instructions Recorded Confirmed lactulose 10 gram/15 mL oral 15 ml PO PRN PRN Constipation 12/20/22 12/20/22 solution menthol 0.44 %-zinc oxide 20.6 % See Rx Instructions .Route .COMPLEX 12/20/22 12/20/22 topical ointment (Calmoseptine) morphine 15 mg tablet,extended 15 mg PO PRN PRN Pain 12/20/22 12/20/22 release morphine 30 mg tablet,extended 30 mg PO BID 12/20/22 12/20/22 release oxycodone 5 mg tablet 5 mg PO Q8H PRN Pain 12/20/22 12/20/22 Allergies Allergy/AdvReac Type Severity Reaction Status Date / Time No Known Allergies Allergy Unverified 05/29/17 19:29 Review of Systems Review of Systems: A 10 system review of systems was completed on the patient and is negative except for what is stated in the HPI. Nursing and ancillary documentation was reviewed. [facility] Past Medical History Medical History Chronic pain syndrome Gout Hyperlipidemia Hypertension Iron deficiency anemia Psoriasis Type 2 diabetes mellitus Surgical History Surgical History History of cataract extraction with lens replacement History of cholecystectomy Family History Family History Other Diabetes mellitus Hypertension Social History Social History Social History: Healthcare power of county attorney: Farida Muller, daughter. Code status: Full code. Smoking status: Never smoker Second hand tobacco smoke exposure: No Alcohol intake: never Substance use: never Lack of Transportation: No Lack of Food: Never True Current Housing: I Have Housing Concerned About Future Housing: No Difficulty Paying Gas/Electric Bills: No Difficulty Paying for Meds: No Currently Unemployed: No Education: Master's Degree or Higher Difficulty w/ Childcare or Family Care: No Additional living arrangements comments: Lives at [facility]. He has 2 living children who live nearby. 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 Spiritual care concerns: No Exam Narrative: GENERAL: Well-appearing, well-nourished, and in no acute distress. HEAD: Normocephalic, atraumatic. EYES: PERRLA and EOMI. ENT: Nares clear, no rhinorrhea or epistaxis. Mucous membranes moist. NECK: Supple. CHEST: Clear to auscultation. No respiratory distress. HEART: Regular rate and rhythm. No murmur heard. Normal peripheral pulses. ABDOMEN: Soft, nontender, nondistended, normal active bowel sounds. EXTREMITIES: Normal range of motion. No edema. SKIN: Warm, dry, no rash. NEURO: No focal deficits. Alert and oriented x3. PSYCH: Normal mood and affect. Course Vital Signs Vital signs: Vital Signs Pulse Rate 110 H 05/26/24 14:56 Respiratory Rate 20 05/26/24 14:56 Blood Pressure 138/73 05/26/24 14:56 Pulse Oximetry 100 05/26/24 14:56 Oxygen Delivery Room Air 05/26/24 14:56 Pulse Rate 107 H 05/26/24 16:46 Respiratory Rate 14 05/26/24 16:46 Blood Pressure 113/74 05/26/24 16:46 Pulse Oximetry 99 05/26/24 16:46 Oxygen Delivery Room Air 05/26/24 14:56 Medical Decision Making MDM Narrative Med
--- NOTE | 2024-05-26 20:28 | PC.NURSE ---
attempted to call nursing report to [facility] multiple times. It continues to ring, then say were sorry your call can not be completed at this time. please hang up and try again later. No option for voicemail.
[2024-05-26 21:10] VITALS: BP 117/76; PULSE 64; RESP 16; TEMP 36.6; O2SAT 98
--- NOTE | 2024-05-26 21:20 | PC.NURSE ---
Large BM cleaned up and new depend placed on pt. No blood observed.
--- NOTE | 2024-05-26 21:21 | PC.NURSE ---
report to Evonne at [facility].
--- NOTE | 2024-05-26 21:23 | PC.NURSE ---
Report given to [facility].
== END 2024-05-26 21:23 ==
PROVIDERS: Emergency Provider Emergency Medicine; PCP Internal Medicine
DX: R11.2 Nausea with vomiting, unspecified (principal); I10 Essential (primary) hypertension; E78.5 Hyperlipidemia, unspecified; E11.9 Type 2 diabetes mellitus without complications; D50.9 Iron deficiency anemia, unspecified; L40.9 Psoriasis, unspecified; M10.9 Gout, unspecified; G89.4 Chronic pain syndrome; Z96.1 Presence of intraocular lens; Z98.49 Cataract extraction status, unspecified eye; Z90.49 Acquired absence of other specified parts of digestive tract; Z79.891 Long term (current) use of opiate analgesic
CPT/HCPCS: 36415; 80053; 85025; 85610; 85730; 86850; 86900; 86901; 99283